=== PATIENT | female | born 1945 ===

== ENCOUNTER 2019-05-29 13:20 | Inpatient (IN) | payer MEDICARE, SELFPAY ==
[2019-05-29] VITALS (28 sets, daily range): BP systolic 80–187; BP diastolic 47–102; PULSE 58–106; RESP 16–41; TEMP 36.8–38.8; O2SAT 89–99; BMI 25.8
--- NOTE | 2019-05-29 13:28 | XR_ITS ---
WS: [id number] Portable AP upright chest, 05/29/2019 Clinical Data: fever cough Comparison: AP and lateral chest, 12/30/2018. Findings: No nodules, masses or effusions are seen. The heart is normal. The pulmonary vascularity is slightly increased. No pneumonia or pneumothorax is seen. The right diaphragm is elevated. The aorti c arch and descending aorta show tortuosity. Monitor leads on the chest wall. XR/XR chest 1V portable [id number] Impression: 1. Elevation of the right diaphragm unchanged. 2. Mild pulmonary vascular congestion. 3. Atherosclerosis.
--- NOTE | 2019-05-29 13:28 | CT_ITS ---
WS: [id number] CT scan of the head, 05/29/2019 Clinical Data: ams Comparison: CT head, 07/22/2015. DLP: 898.[address] scans at [facility] use at least one of these dose optimization techniques: automat ed exposure control; mA and/or kV adjustment per patient size (includes targeted exams where dose is matched to clinical indication); or iterative reconstruction. Findings: The ventricular system is moderately dilated without shift. No recent infarct or hemorrhage is seen. There are no abnormal intracerebral masses. The cerebellum and brainstem are not remarkable. Bony windows of the skull and skull base show no fractures or erosions. The mastoid air cells, logistics intern al auditory canals, sella turcica, intraorbital contents, and paranasal sinuses are unremarkable. CT/CT head wo con* [id number] Impression: Moderate cerebral atrophy.
--- NOTE | 2019-05-29 13:29 | ECG_ITS ---
Measurements Intervals [place] Rate: 106 P: 69 IL: 166 QRS: -14 QRSD: 80 T: 83 QT: 309 QTc: 411 SINUS TACHYCARDIA POSSIBLE LEFT ATRIAL ENLARGEMENT [-0.1mV P WAVE IN V1/V2] NONSPECIFIC T-WAVE ABNORMALITY ABNORMAL RHYTHM ECG INTERPRETATION BASED ON A DEFAULT AGE OF 40 YEARS Compared to ECG 02/27/2017 12:13:13 Sinus rhythm no longer present T-wave abnormality still present Electronically Signed On 05-30-2019 11:25:50 FACILITY MAINTENANCE SUPERVISOR by Jacob Mera M.D. [email or web address]
--- NOTE | 2019-05-29 13:30 | ED_ITS ---
HPI - Altered Mental Status General: Chief Complaint: Altered Mental Status Stated Complaint: ALTERED MENTAL STATUS Time Seen by Provider: 05/29/19 13:22 History of Present Illness: HPI narrative: patient is a 73 year old female history of COPD who presents with AMS and fever. Patient had gone to a gathering of some sort last week and had been reportedly exposed to influenza. Patient had been fine per spouse (reported to EMS) and today became less responsive and active. Patient initially hypoxic in the mid to upper 80's. She is currently alert and will answer questions but cannot tell us where she is other than the place . Patient has had albuterol, duo-neb and solu-medrol per EMS due to rhonchi and wheezing noted throughout lung jennings. No emesis reported although appears to be on clothing. No diarrhea, no rash, no edema. Neurologically in tact otherwise. Will obtain labs and evaluate for influenza, PNA or other causes of possible sepsis Accu-check pre-hospital 216 mg/dL MD complaint: altered mental status and confusion Onset (ago): unknown Timing confirmed by: spouse Severity: moderate Consistency of symptoms: Waxing and Waning Context: recent fever and COPD Associated symptoms: Reports no associated symptoms; Deny depression, homicidal ideation or suicidal ideation Treatments prior to arrival: IV fluid, oxygen and other (beta agonists, steroids) Review of Systems Const: Denies: change in appetite Eyes: Denies: change in vision, blurry vision, eye discharge or eye redness ENMT: Denies: throat pain, uvular edema, painful swallowing, mouth pain, de ntal pain, nasal congestion or facial/sinus pain Card: Denies: chest pain, irregular heart rhythm, swelling of feet/ankles, shortness of breath on exertion, shortness of breath when lying down or leg pain with exertion Resp: Denies: productive cough or coughing up blood GI: Denies: abdominal pain, nausea, vomiting, diarrhea, constipation or fecal incontinence : Denies: flank pain, difficulty urinating, painful urination, urinary frequency, urinary urgency or urinary hesitancy Musc: Denies: neck pain, back pain, extremity pain or extremity swelling Skin/Breast: Denies: rash, itching, redness, yellow skin or dry skin Neuro: Denies: headache, numbness in extremities or changes in sensation Psych: Denies: anxiety, depression, mood swings, panic attacks, sleeping less, suicidal ideation or homicidal ideation Endo: Denies: excessive urination, excessive thirst or tired all the time Saleem/Lymph: Denies: easy bruising, petechiae or enlarged lymph nodes All/Imm: Denies: hives, throat swelling, facial swelling, acute wheezing or seasonal allergies PFSH ED PFSH: Statuses (acute, chronic, etc) shown below reflect problem list status as previously entered and may not be historically accurate Social History Smoking and tobacco status: unknown if ever smoked Physical Exam Const: COMMON NORMALS: no limitations, alert and well nourished GENERAL APPEARANCE: cooperative, well developed, in distress, ill appearing and frail appearing ORIENTATION/CONSCIOUSNESS: Yes awake and Yes oriented to person HENMT: COMMON NORMALS: normocephalic, head/scalp atraumatic, hearing grossly normal bilaterally, external ears normal, EAC's normal, TM's normal bilaterally, external nose normal, nasal mucous membranes and turbinates normal, moist oral mucous membranes, oropharynx normal, dentition normal and gingiva normal HEAD & SCALP: normal to inspection, normocephalic and atraumatic FACE & SINUS: normal facial exam NOSE: external nose normal and nasal mucous membranes and turbinates normal EXTERNAL EAR: Yes external ears normal EXTERNAL AUDITORY CANAL: EAC's normal TYMPANIC MEMBRANE: TM's normal bilaterally MOUTH: oral and palatal mucosa normal, lip normal and tongue normal THROAT: no uvular edema Eye: COMMON NORMALS: PERRL, EOMs intact bilaterally, conjunctivae normal, no scleral icterus and normal visual jennings by confrontation GENERAL EYE: normal appearance of both eyes and normal light reflex VISUAL ACUITY: Yes acuity normal ALIGNMENT: Yes alignment normal PERIORBITAL: periorbital findings normal EYELID: eyelids normal CONJUNCTIVA: Yes conjunctivae normal SCLERA: sclerae normal PUPIL: Yes PERRL and Yes accommodation reflex normal DIRECT OPHTHALMOSCOPY: Yes normal light reflex Neck/C-Spine: COMMON NORMALS: full ROM, no lymphadenopathy, supple, no meningeal signs and no JVD GENERAL: Yes normal visual inspection CAROTIDS: Yes normal carotid upstroke CERVICAL SPINE: Yes cervical ROM normal Lymph: LYMPHATIC: no lymphadenopathy noted Chest: COMMONS NORMALS: inspection of chest normal CHEST: Yes symmetrical chest wall rise Resp: COMMON NORMALS: normal respiratory effort, no retractions and no use of accessory muscles EFFORT & INSPECTION: Yes symmetric chest movement and Yes audible wheezes AUSCULTATION: rhonchi left lower and wheezes expiratory wheezes and throughout Cardio: COMMON NORMALS: no JVD, regular rate, regular rhythm, S1 normal heart sound, S2 normal heart sound, no murmurs and peripheral pulses 2+ throughout RATE: regular rate RHYTHM: regular rhythm HEART SOUNDS: S1 normal and S2 normal PERIPHERAL PULSES: pulses 2+ throughout GI: COMMON NORMALS: normal to inspection, nondistended, normoactive bowel sounds and non-tender : COMMON NORMALS: Yes no CVA tenderness BLADDER/KIDNEY EXAM: Yes no CVA tenderness Back/Pelvis: COMMON NORMALS: no CVA tenderness, thoracic and lumbar spine normal to inspection, no thoracic nor lumbar tenderness and thoraco-lumbar ROM normal Extremity: COMMON NORMALS: normal to inspection, full ROM, normal capillary refill, no calf tenderness and no pedal edema Neuro: COMMON NORMALS: CN's II-XII intact bilaterally, moves all extremities, no focal motor deficits and no sensory deficits noted SENSORIUM/ORIENTATION: Yes alert and Yes oriented to person MENINGEAL SIGNS: Yes no meningeal signs SPEECH: speech normal GAIT: Yes unable to assess gait MOTOR EXAM: strength 5/5 throughout and no tremor noted Psych: COMMON NORMALS: mental status grossly normal, thought process normal, cooperative, affect normal, speech normal and activity/motor behavior normal SPEECH: Yes normal speech THOUGHT PROCESS: normal thought process THOUGHT CONTENT: Yes normal thought content INSIGHT: insight good Skin: COMMON NORMALS: no rashes or lesions noted, no wounds, skin turgor normal and no jaundice GENERAL SKIN EXAM: no rashes or lesions noted and turgor normal Course ED course: Patient sleeping, heart rate and blood pressure normalized, she is still requiring high flow O2 and is keeping sats in the mid 90s. Bumex and Haris ephin given. Will admit to ICU under presumed sepsis protocol. Vital Signs: Vital signs: Vital Signs Temperature 101.9 F H 05/29/19 13:29 Pulse Rate 106 H 05/29/19 13:29 Respiratory Rate 37 H 05/29/19 13:29 Blood Pressure 187/102 05/29/19 13:29 Pulse Oximetry 92 05/29/19 14:57 MDM - Altered Mental Status Lab Data: Attestation: I reviewed the patient's lab results. Labs: Lab Results 05/29/19 05/29/19 05/29/19 Range/Units 13:42 13:42 13:42 WBC 15.4 H (4.0-10.0) 10^3/ uL RBC 4.28 (4.1-5.3) 10^6/u L Hgb 12.2 (11.5-15.3) g/dL Hct 38.9 (37.0-47.0) % MCV 90.9 (81-99) fL MCH 28.5 (28.0-34.0) pg MCHC 31.4 (30.0-36.0) g/dL RDW 15.9 H (12.1-15.1) % Plt Count 216 (130-400) 10^3/c mm MPV 9.8 (7.4-10.4) fL Neut % (Auto) 81.9 % Lymph % (Auto) 7.7 % [place] % (Auto) 9.6 % Eos % (Auto) 0.0 % Baso % (Auto) 0.1 % Neut # (Auto) 12.6 H (1.8-7.7) 10^3/u L Lymph # (Auto) 1.2 (0.8-4.8) 10^3/u L [place] # (Auto) 1.5 H (0.2-0.9) 10^3/u L Eos # (Auto) 0.0 (0.0-0.8) 10^3/u L Baso # (Auto) 0.0 (0.0-0.1) 10^3/u L Nucleated RBC % (a uto) 0 % Nucleated RBCs # 0.0 /100WBC ESR 96 H (0-15) mm/hr PT 15.90 H (10.5-13.3) SECO NDS INR 1.23 H (0.8-1.2) APTT 27.4 (23.9-36.7) SECO NDS Specimen Type Sample Site ABG pH (7.35-7.45) ABG pCO2 (35-45) mmHg ABG pO2 (80.0-100.0) mmH g ABG HCO3 (22-26) mmol/L ABG Base Excess (-2.0-2.0) mmol/ L Shiv Test Hematocrit (37-47) % O2 Delivery Device O2 Liters/Min % Clinical Trial Data Manager ID Sodium (136-145) mmol/L Potassium (3.5-5.1) mmol/L Chloride (98-107) mmol/L Carbon Dioxide (22-29) mmol/L Anion Gap (5-19) BUN (8-23) mg/dL Creatinine (0.5-0.9) mg/dL Glucose (74-106) mg/dL Lactate (0.5-2.2) mmol/L Calcium (8.8-10.2) mg/Dl Magnesium (1.7-2.3) mg/dL Total Bilirubin (0.15-1.2) mg/dL AST (0-32) U/L ALT (0-33) U/L Alkaline Phosphata se (35-105) IU/L NT-Pro-B Natriuret Pep (0-125) pg/mL Total Protein (6.6-8.7) g/dL Albumin (3.5-5.2) g/dL Globulin (1.3-4.6) g/dL Urine Color (Yellow) Urine Appearance (CLEAR) Urine pH (5-7) Ur Specific Gravit y (1.005-1.030) Urine Protein (Negative) Urine Glucose (UA) (Normal) Urine Ketones (Negative) Urine Occult Blood (Negative) Urine Nitrate (Negative) Urine Bilirubin (NEGATIVE) Urine Urobilinogen (Negative) mg/dL Ur Leukocyte Tammy ase (Negative) Urine RBC (0-2) /hpf Urine WBC (0-5) /hpf Ur Squamous Epith Cells (0-5) Ur Transition Epit h Cell /hpf Urine Bacteria (NONE) Hyaline Casts Urine Mucus Urine Opiates Scre en (Negative) ng/mL Ur Barbiturates Sc reen (Negative) ng/mL Ur Phencyclidine S crn (Negative) ng/mL Ur Amphetamines Sc reen (Negative) ng/mL U Benzodiazepines Scrn (Negative) ng/mL Urine Cocaine Scre en (Negative) ng/mL U Marijuana (THC) Screen (Negative) ng/mL Serum Ketones (Negative) Influenza Type A A g (Negative) POC Influenza B Ag (Negative) 05/29/19 05/29/19 05/29/19 Range/Units 13:42 13:42 13:46 WBC (4.0-10.0) 10^3/ uL RBC (4.1-5.3) 10^6/u L Hgb (11.5-15.3) g/dL Hct (37.0-47.0) % MCV (81-99) fL MCH (28.0-34.0) pg MCHC (30.0-36.0) g/dL RDW (12.1-15.1) % Plt Count (130-400) 10^3/c mm MPV (7.4-10.4) fL Neut % (Auto) % Lymph % (Auto) % [place] % (Auto) % Eos % (Auto) % Baso % (Auto) % Neut # (Auto) (1.8-7.7) 10^3/u L Lymph # (Auto) (0.8-4.8) 10^3/u L [place] # (Auto) (0.2-0.9) 10^3/u L Eos # (Auto) (0.0-0.8) 10^3/u L Baso # (Auto) (0.0-0.1) 10^3/u L Nucleated RBC % (a uto) % Nucleated RBCs # /100WBC ESR (0-15) mm/hr PT (10.5-13.3) SECO NDS INR (0.8-1.2) APTT (23.9-36.7) SECO NDS Specimen Type Sample Site ABG pH (7.35-7.45) ABG pCO2 (35-45) mmHg ABG pO2 (80.0-100.0) mmH g ABG HCO3 (22-26) mmol/L ABG Base Excess (-2.0-2.0) mmol/ L Shiv Test Hematocrit (37-47) % O2 Delivery Device O2 Liters/Min % Clinical Trial Data Manager ID Sodium 132 L (136-145) mmol/L Potassium 4.5 (3.5-5.1) mmol/L Chloride 93 L (98-107) mmol/L Carbon Dioxide 25 (22-29) mmol/L Anion Gap 18.5 (5-19) BUN 45 H (8-23) mg/dL Creatinine 1.7 H (0.5-0.9) mg/dL Glucose 210 H (74-106) mg/dL Lactate 1.8 (0.5-2.2) mmol/L Calcium 9.6 (8.8-10.2) mg/Dl Magnesium 2.3 (1.7-2.3) mg/dL Total Bilirubin 0.4 (0.15-1.2) mg/dL AST 52 H (0-32) U/L ALT 17 (0-33) U/L Alkaline Phosphata se 92 (35-105) IU/L NT-Pro-B Natriuret Pep 1355 H (0-125) pg/mL Total Protein 7.9 (6.6-8.7) g/dL Albumin 3.4 L (3.5-5.2) g/dL Globulin 4.5 (1.3-4.6) g/dL Urine Color (Yellow) Urine Appearance (CLEAR) Urine pH (5-7) Ur Specific Gravit y (1.005-1.030) Urine Protein (Negative) Urine Glucose (UA) (Normal) Urine Ketones (Negative) Urine Occult Blood (Negative) Urine Nitrate (Negative) Urine Bilirubin (NEGATIVE) Urine Urobilinogen (Negative) mg/dL Ur Leukocyte Tammy ase (Negative) Urine RBC (0-2) /hpf Urine WBC (0-5) /hpf Ur Squamous Epith Cells (0-5) Ur Transition Epit h Cell /hpf Urine Bacteria (NONE) Hyaline Casts Urine Mucus Urine Opiates Scre en (Negative) ng/mL Ur Barbiturates Sc reen (Negative) ng/mL Ur Phencyclidine S crn (Negative) ng/mL Ur Amphetamines Sc reen (Negative) ng/mL U Benzodiazepines Scrn (Negative) ng/mL Urine Cocaine Scre en (Negative) ng/mL U Marijuana (THC) Screen (Negative) ng/mL Serum Ketones Negative (Negative) Influenza Type A A g (Negative) POC Influenza B Ag (Negative) 05/29/19 05/29/19 05/29/19 Range/Units 13:54 14:00 14:00 WBC (4.0-10.0) 10^3/ uL RBC (4.1-5.3) 10^6/u L Hgb (11.5-15.3) g/dL Hct (37.0-47.0) % MCV (81-99) fL MCH (28.0-34.0) pg MCHC (30.0-36.0) g/dL RDW (12.1-15.1) % Plt Count (130-400) 10^3/c mm MPV (7.4-10.4) fL Neut % (Auto) % Lymph % (Auto) % [place] % (Auto) % Eos % (Auto) % Baso % (Auto) % Neut # (Auto) (1.8-7.7) 10^3/u L Lymph # (Auto) (0.8-4.8) 10^3/u L [place] # (Auto) (0.2-0.9) 10^3/u L Eos # (Auto) (0.0-0.8) 10^3/u L Baso # (Auto) (0.0-0.1) 10^3/u L Nucleated RBC % (a uto) % Nucleated RBCs # /100WBC ESR (0-15) mm/hr PT (10.5-13.3) SECO NDS INR (0.8-1.2) APTT (23.9-36.7) SECO NDS Specimen Type Arterial Sample Site Radial, right ABG pH 7.43 (7.35-7.45) ABG pCO2 41.9 (35-45) mmHg ABG pO2 78.2 L (80.0-100.0) mmH g ABG HCO3 27.5 H (22-26) mmol/L ABG Base Excess 2.8 H (-2.0-2.0) mmol/ L Shiv Test Pos Hematocrit 39.6 (37-47) % O2 Delivery Device Simple mask O2 Liters/Min 7.0 % Clinical Trial Data Manager ID [id number] Sodium (136-145) mmol/L Potassium (3.5-5.1) mmol/L Chloride (98-107) mmol/L Carbon Dioxide (22-29) mmol/L Anion Gap (5-19) BUN (8-23) mg/dL Creatinine (0.5-0.9) mg/dL Glucose (74-106) mg/dL Lactate (0.5-2.2) mmol/L Calcium (8.8-10.2) mg/Dl Magnesium (1.7-2.3) mg/dL Total Bilirubin (0.15-1.2) mg/dL AST (0-32) U/L ALT (0-33) U/L Alkaline Phosphata se (35-105) IU/L NT-Pro-B Natriuret Pep (0-125) pg/mL Total Protein (6.6-8.7) g/dL Albumin (3.5-5.2) g/dL Globulin (1.3-4.6) g/dL Urine Color Yellow (Yellow) Urine Appearance Hazy A (CLEAR) Urine pH 5 (5-7) Ur Specific Gravit y 1.020 (1.005-1.030) Urine Protein 3+ H (Negative) Urine Glucose (UA) Norm (Normal) Urine Ketones 1+ H (Negative) Urine Occult Blood 3+ H (Negative) Urine Nitrate Negative (Negative) Urine Bilirubin 1+ H (NEGATIVE) Urine Urobilinogen 4 H (Negative) mg/dL Ur Leukocyte Tammy ase 2+ H (Negative) Urine RBC 25-40 H (0-2) /hpf Urine WBC 80-100 H (0-5) /hpf Ur Squamous Epith Cells 5-10 H (0-5) Ur Transition Epit h Cell 0-4 /hpf Urine Bacteria 1+ H (NONE) Hyaline Casts Rare Urine Mucus Trace Urine Opiates Scre en Negative (Negative) ng/mL Ur Barbiturates Sc reen Negative (Negative) ng/mL Ur Phencyclidine S crn Negative (Negative) ng/mL Ur Amphetamines Sc reen Negative (Negative) ng/mL U Benzodiazepines Scrn Negative (Negative) ng/mL Urine Cocaine Scre en Negative (Negative) ng/mL U Marijuana (THC) Screen Negative (Negative) ng/mL Serum Ketones (Negative) Influenza Type A A g (Negative) POC Influenza B Ag (Negative) 05/29/19 Range/Units 14:41 WBC (4.0-10.0) 10^3/ uL RBC (4.1-5.3) 10^6/u L Hgb (11.5-15.3) g/dL Hct (37.0-47.0) % MCV (81-99) fL MCH (28.0-34.0) pg MCHC (30.0-36.0) g/dL RDW (12.1-15.1) % Plt Count (130-400) 10^3/c mm MPV (7.4-10.4) fL Neut % (Auto) % Lymph % (Auto) % [place] % (Auto) % Eos % (Auto) % Baso % (Auto) % Neut # (Auto) (1.8-7.7) 10^3/u L Lymph # (Auto) (0.8-4.8) 10^3/u L [place] # (Auto) (0.2-0.9) 10^3/u L Eos # (Auto) (0.0-0.8) 10^3/u L Baso # (Auto) (0.0-0.1) 10^3/u L Nucleated RBC % (a uto) % Nucleated RBCs # /100WBC ESR (0-15) mm/hr PT (10.5-13.3) SECO NDS INR (0.8-1.2) APTT (23.9-36.7) SECO NDS Specimen Type Sample Site ABG pH (7.35-7.45) ABG pCO2 (35-45) mmHg ABG pO2 (80.0-100.0) mmH g ABG HCO3 (22-26) mmol/L ABG Base Excess (-2.0-2.0) mmol/ L Shiv Test Hematocrit (37-47) % O2 Delivery Device O2 Liters/Min % Clinical Trial Data Manager ID Sodium (136-145) mmol/L Potassium (3.5-5.1) mmol/L Chloride (98-107) mmol/L Carbon Dioxide (22-29) mmol/L Anion Gap (5-19) BUN (8-23) mg/dL Creatinine (0.5-0.9) mg/dL Glucose (74-106) mg/dL Lactate (0.5-2.2) mmol/L Calcium (8.8-10.2) mg/Dl Magnesium (1.7-2.3) mg/dL Total Bilirubin (0.15-1.2) mg/dL AST (0-32) U/L ALT (0-33) U/L Alkaline Phosphata se (35-105) IU/L NT-Pro-B Natriuret Pep (0-125) pg/mL Total Protein (6.6-8.7) g/dL Albumin (3.5-5.2) g/dL Globulin (1.3-4.6) g/dL Urine Color (Yellow) Urine Appearance (CLEAR) Urine pH (5-7) Ur Specific Gravit y (1.005-1.030) Urine Protein (Negative) Urine Glucose (UA) (Normal) Urine Ketones (Negative) Urine Occult Blood (Negative) Urine Nitrate (Negative) Urine Bilirubin (NEGATIVE) Urine Urobilinogen (Negative) mg/dL Ur Leukocyte Tammy ase (Negative) Urine RBC (0-2) /hpf Urine WBC (0-5) /hpf Ur Squamous Epith Cells (0-5) Ur Transition Epit h Cell /hpf Urine Bacteria (NONE) Hyaline Casts Urine Mucus Urine Opiates Scre en (Negative) ng/mL Ur Barbiturates Sc reen (Negative) ng/mL Ur Phencyclidine S crn (Negative) ng/mL Ur Amphetamines Sc reen (Negative) ng/mL U Benzodiazepines Scrn (Negative) ng/mL Urine Cocaine Scre en (Negative) ng/mL U Marijuana (THC) Screen (Negative) ng/mL Serum Ketones (Negative) Influenza Type A A g Negative (Negative) POC Influenza B Ag Negative (Negative) Discharge Plan Discharge Patient Disposition: Admitted As Inpatient Clinical Impression: Acute UTI Altered mental status Qualifiers: Altered mental status type: disorientation Qualified Code(s): R41.0 - Disorientation, unspecified Sepsis Qualifiers: Sepsis type: sepsis due to unspecified organism Sepsis acute organ dysfunction status: unspecified Qualified Code(s): A41.9 - Sepsis, unspecified organism CHF (congestive heart failure) Qualifiers: Heart failure type: unspecified Heart failure chronicity: acute Qualified Code(s): I50.9 - Heart failure, unspecified Condition: Stable Referrals: Ash Arevalo MD [Family Provider] - Coding Level of Care Code ED Director Operating [facility] Fwd Exam Problem Focused
[2019-05-29] MEDS: cefTRIAXone 1,000 MG in sodium chloride 0.9% (plus) 50 ML 100 MG IV (13:44)
[2019-05-29] MEDS: acetaminophen 650 mg Supp PR (13:45)
[2019-05-29] MEDS: sodium chloride 0.9% 1,000 ML 999 ML IV (13:45)
[2019-05-29 13:54] LABS: Basophils % 0.1 %; Hematocrit 38.9 % (37.0-47.0); Hemoglobin 12.2 g/dL (11.5-15.3); Lymphocytes # 1.2 10^3/uL (0.8-4.8); Lymphocytes % 7.7 %; Mean Corpuscular HGB Conc 31.4 g/dL (30.0-36.0); Mean Corpuscular Hemoglobin 28.5 pg (28.0-34.0); Mean Corpuscular Volume 90.9 fL (81-99); Mean Platelet Volume 9.8 fL (7.4-10.4); Monocytes # 1.5 10^3/uL (0.2-0.9); Monocytes % 9.6 %; Neutrophils # 12.6 10^3/uL (1.8-7.7); Neutrophils % 81.9 %; Nucleated Red Blood Cells % 0 %; Platelet Count 216 10^3/cmm (130-400); Red Blood Count 4.28 10^6/uL (4.1-5.3); Red Cell Distribution Width 15.9 % (12.1-15.1); White Blood Count 15.4 10^3/uL (4.0-10.0)
[2019-05-29 14:04] LABS: INR 1.23 (0.8-1.2); Partial Thromboplastin Time 27.4 SECONDS (23.9-36.7)
[2019-05-29 14:06] LABS: Ketone (Acetest) Serum Negative (Negative)
[2019-05-29 14:07] LABS: ABG PCO2 41.9 mmHg (35-45); ABG PH Result 7.43 (7.35-7.45); Arterial Blood Gas Hematocrit 39.6 % (37-47); Base Excess ABG 2.8 mmol/L (-2.0-2.0); Blood Gas Allen Test Pos; Blood Gas Sample Site Radial, right; Blood Gas Sample Type Arterial; HCO3 ABG 27.5 mmol/L (22-26); Oxygen Device SIMPLE MASK; PO2 ABG 78.2 mmHg (80.0-100.0)
[2019-05-29 14:08] LABS: Lactate (Lactic Acid level) 1.8 mmol/L (0.5-2.2)
[2019-05-29 14:20] LABS: Alanine Aminotransferase 17 U/L (0-33); Albumin Level 3.4 g/dL (3.5-5.2); Alkaline Phosphatase 92 IU/L (35-105); Anion Gap 18.5 (5-19); Aspartate Amino Transferase 52 U/L (0-32); Blood Urea Nitrogen 45 mg/dL (8-23); Calcium 9.6 mg/Dl (8.8-10.2); Carbon Dioxide 25 mmol/L (22-29); Chloride 93 mmol/L (98-107); Globulin 4.5 g/dL (1.3-4.6); Glucose 210 mg/dL (74-106); Magnesium 2.3 mg/dL (1.7-2.3); NT Pro B Type Natriuretic Pept 1355 pg/mL (0-125); Potassium 4.5 mmol/L (3.5-5.1); Sodium 132 mmol/L (136-145); Total Bilirubin 0.4 mg/dL (0.15-1.2); Total Protein 7.9 g/dL (6.6-8.7)
[2019-05-29 14:34] LABS: Erythrocyte Sedimentation Rate 96 mm/hr (0-15)
[2019-05-29] MEDS: bumetanide 0.25 mg/mL SDV 10 mL 2 MG IV (14:53)
[2019-05-29 15:22] LABS: Influenza A by IFA Negative (Negative); Influenza B by IFA Negative (Negative)
[2019-05-29 15:28] LABS: Bilirubin Urine 1+ (NEGATIVE); Blood Urine 3+ (Negative); Glucose Urine UA Norm (Normal); Ketones Urine 1+ (Negative); Nitrate Urine Negative (Negative); Protein Urine 3+ (Negative); Urine Appearance Hazy (CLEAR); Urine Color Yellow (Yellow); pH Urine 5 (5-7)
[2019-05-29 15:29] LABS: Add Urine Microscopic? YES; Leukocyte Esterase Urine 2+ (Negative); Urobilinogen Urine 4 mg/dL (Negative)
[2019-05-29 15:35] LABS: Hyaline Casts Urine RARE; Mucus Urine TRACE
[2019-05-29 15:37] LABS: Bacteria Urine 1+; RBC Urine 25-40 /hpf (0-2); Transitional Epi Cells Urine 0-4 /hpf; WBC Urine 80-100 /hpf (0-5)
[2019-05-29 15:38] LABS: Add Urine Culture? Yes
[2019-05-29 15:40] LABS: Amphetamines Screen Urine Negative (Negative); Barbiturates Screen Urine Negative (Negative); Benzodiazepines Screen Urine Negative (Negative); Cocaine Screen Urine Negative (Negative); Opiate Screen Urine Negative (Negative); PCP Screen Urine Negative (Negative); THC Screen Urine Negative (Negative)
--- NOTE | 2019-05-29 17:31 | P.HP_ITS ---
Providers/Chief Complaint Admitting Physician: Sushila Primary Care Provider: Irina Chief Complaint: ALTERED MENTAL STATUS History of Present Illness Leslie Urena is a 73 year old female with history of COPD, HTN, hypothyroidism, depression, schizophrenia, hyperammonemia was brought to the emergency department evaluation by her family due to generalized weakness, altered mental status and fever. She reportedly attended a gathering of some sort last week and was exposed to influenza. Family were concerned perhaps this was the cause of her illness currently. Unfortunately during the time of my visit family is gone. She appears to have improved, and he is generally weak, with sluggish responses, but is oriented x3, with currently good insight into her condition. She acknowledges her overall weakness. Does report having burning with urination, although cannot say the duration. Per discussion with ER physician here she was noted to be hypoxic in mid to upper 80s. Was started on oxygen mask at 8 L with improvement in saturation, jerrod is not thought to normally be on oxygen at home. Chest x-ray was assessed with finding of pulmonary congestion due to which received [address] of the head was unremarkable. She is noted to have leukocytosis of 15, sinus tachycardia of 106 with suspected sepsis, with urinalysis suggestive of urinary tract infection. Due to this she received a dose of Rocephin, with send out of cultures. Lactic acid is 1.8, however, she does have acute kidney injury with creatinine of 1.7 with normal level at baseline. Review of Systems Const: Reports: fever and malaise; Denies: chills or body aches Eyes: Denies: change in vision or eye redness ENMT: Denies: throat pain, oral sores/lesions or ear pain Card: Denies: chest pain, edema, pre-syncope or shortness of breath on exertion Resp: Denies: shortness of breath, productive cough, change in phlegm color or coughing up blood GI: Denies: abdominal pain, nausea, vomiting, diarrhea, constipation, blood in stool or black tarry stool : Reports: other (Burning with urination); Denies: flank pain, urinary frequency or blood in urine Musc: Denies: back pain, joint swelling or redness Skin/Breast: Denies: rash, sores or new lesion Neuro: Reports: confusion; Denies: headache, numbness in extremities, weakness in extremities, dizziness or seizure-like activity Endo: Denies: excessive urination or excessive thirst Saleem/Lymph: Denies: easy bleeding or purpura All/Imm: Denies: hives, throat swelling or tongue swelling Medications/Allergies Home Medications Medication Instructions Recorded Confirmed Last Taken Type albuterol sulfate [ProAir HFA] INHALATION 05/29/19 Unknown History atenolol 25 mg PO DAILY 05/29/19 05/29/19 Unknown History divalproex 1,000 mg PO BID 05/29/19 05/29/19 Unknown History fluticasone propion-salmeterol INHALATION 05/29/19 Unknown History [Advair Diskus] levothyroxine 125 mcg PO DAILY 05/29/19 05/29/19 Unknown History olanzapine 5 mg PO DAILY 05/29/19 05/29/19 Unknown History paroxetine HCl 20 mg PO DAILY 05/29/19 05/29/19 Unknown History Allergies Allergy/AdvReac Type Severity Reaction Status Date / Time No Known Allergies Allergy Verified 05/29/19 13:31 PFSH Acute PFSH: Statuses (acute, chronic, etc) shown below reflect problem list status as previously entered and may not be historically accurate Medical History COPD (chronic obstructive pulmonary disease) (Acute) Depression (Acute) HTN (hypertension) (Acute) Hyperammonemia (Acute) Hypothyroidism (Acute) Schizophrenia (Acute) Social History Smoking and tobacco status: current every day smoker cigarettes Packs smoked per day: 1 Alcohol intake: current Alcohol intake frequency: holidays/special occasions only Substance/Drug Use: never Household members: spouse Marital status: Vitals/I&O/Wt Last Vital Signs Temp 101.9 F H 05/29/19 13:29 Pulse 106 H 05/29/19 13:29 Resp 37 H 05/29/19 13:29 BP 187/102 05/29/19 13:29 Pulse Ox 92 05/29/19 14:57 Weight last 48 hrs Weight 72.575 kg Physical Exam Const: COMMON NORMALS: no apparent distress and oriented x3 GENERAL APPEARANCE: cooperative, limp and diaphoretic OTHER: Generally weak HENMT: COMMON NORMALS: oropharynx normal MOUTH: moist mucous membranes ab normal (Cracked/cornified mucous membranes suggesting they were dry for a while, currently appearing more moist) Eye: VISUAL TUCKER: Yes other (Intact) Neck/C-Spine: COMMON NORMALS: no JVD Resp: COMMON NORMALS: normal respiratory effort AUSCULTATION: wheezes Cardio: COMMON NORMALS: regular rhythm, S1 normal heart sound, S2 normal heart sound and no murmurs; negative for no JVD RHYTHM: regular rhythm HEART SOUNDS: S1 normal and S2 normal GI: COMMON NORMALS: normal to inspection, nondistended, normoactive bowel sounds, soft to palpation and non-tender PALPATION: Yes soft Extremity: COMMON NORMALS: no joint enlargement and no pedal edema Neuro: COMMON NORMALS: oriented x3, CN's II-XII intact bilaterally and moves all extremities SENSORIUM/ORIENTATION: Yes alert, Yes oriented to person, Yes oriented to place and Yes oriented to time SPEECH: speech normal SENSORY EXAM: Yes other (Symmetrical) MOTOR EXAM: No tremor and other (Weak, but symmetrical) PUPIL EXAM: Normal pupillary reactivity/response: bilateral Skin: COMMON NORMALS: no rashes or lesions noted GENERAL SKIN EXAM: no rashes or lesions noted Sepsis: Is patient septic: Yes Focused sepsis exam performed: Yes Data : 05/29/19 13:42 05/29/19 13:42 Micro: Microbiology 05/29/19 13:42 Blood Culture - Preliminary Blood SPECIMEN COLLECTED 05/29/19 13:46 Blood Culture - Preliminary Blood SPECIMEN COLLECTED A&P Assessment and plan (1) Sepsis: Severe sepsis with WBC of 15.4, sinus tachycardia of 106, fever 101.9. Due to urinary source, with urinary tract infection. Cannot exclude viral illness as well, although influenza rapid screen is negative. Follow urine and blood cultures. The Rocephin. Received 1 L of IV fluid but this in ER. For now avoid if need further fluid due to CHF exacerbation. Monitor blood pressures. Lactic acid is only 1.8, however, does have acute kidney injury as well with creatinine 1.7, with normal baseline. Due to this classifies as severe sepsis, and will admit to intensive care unit. Status: Acute Qualifiers: Sepsis acute organ dysfunction status: unspecified Sepsis type: sepsis due to unspecified organism Qualified Code(s): A41.9 - Sepsis, unspecified organism Code(s): A41.9 - Sepsis, unspecified organism (2) Acute kidney injury: Creatinine 1.7. Normal baseline. She denies NSAID use at home. We will check kidney ultrasound, urine studies. Status: Acute Code(s): N17.9 - Acute kidney failure, unspecified (3) Acute UTI: 80-100 WBC in urine. Reports dysuria, although is not sure of duration. On review of prior urine cultures several years ago had Klebsiella resistant to ampicillin, prior to that E. coli resistant to gentamicin. Continue Rocephin at this time. Follow urine culture. Status: Acute Code(s): N39.0 - Urinary tract infection, site not specified (4) Altered mental status: Acute encephalopathy secondary to sepsis, urinary tract infection. For now we will reduce dose of olanzapine, reduced dose of paroxetine. For now sips and chips and medications only due to generalized weakness. Status: Acute Qualifiers: Altered mental status type: disorientation Qualified Code(s): R41.0 - Disorientation, unspecified Code(s): R41.82 - Altered mental status, unspecified (5) CHF (congestive heart failure): Continue diuresis. Monitor blood pressures, volume status. Suspected diastolic congestive heart failure. Echocardiogram from 2017 with hyperdynamic circulation, EF 75%, grade 1 diastolic dysfunction. Trace TR. Henry l reassess echo. Check EKG and troponin series. Status: Acute Qualifiers: Heart failure chronicity: acute Heart failure type: unspecified Qualified Code(s): I50.9 - Heart failure, unspecified Code(s): I50.9 - Heart failure, unspecified (6) COPD (chronic obstructive pulmonary disease): Currently appears in COPD exacerbation, with wheezing on exam, does have hypoxia. I am told at baseline does not use oxygen. Currently on 8 L. We will add breathing treatments. Continue oxygen support. Budesonide. Rocephin. Status: Chronic Code(s): J44.9 - Chronic obstructive pulmonary disease, unspecified (7) HTN (hypertension): Status: Chronic Code(s): I10 - Essential (primary) hypertension (8) Hypothyroidism: Status: Chronic Code(s): E03.9 - Hypothyroidism, unspecified (9) Depression: Status: Chronic Code(s): F32.9 - Major depressive disorder, single episode, unspecified (10) Schizophrenia: Status: Chronic Code(s): F20.9 - Schizophrenia, unspecified (11) Hyperammonemia: Status: Chronic Code(s): E72.20 - Disorder of urea cycle metabolism, unspecified Attestations Medical Necessity Statement*: Admission of over 2 midnights is going to be needed for assessment of management of severe sepsis, acute CHF, acute kidney. Coding Level of Care Code Acute Instructional Technology Instructor for [facility] Fwd Diagnoses Sepsis A41.9 Sepsis acute organ dysfunction status: unspecified Sepsis type: sepsis due to unspecified organism Acute kidney injury N17.9 Acute UTI N39.0 Altered mental status R41.0 Altered mental status type: disorientation CHF (congestive heart failure) I50.9 Heart failure chronicity: acute Heart failure type: unspecified COPD (chronic obstructive pulmonary disease) J44.9 HTN (hypertension) I10 Hypothyroidism E03.9 Depression F32.9 Schizophrenia F20.9 Hyperammonemia E72.20 Sepsis Event Note Evaluation Current stage of sepsis: severe sepsis Focused Exam Vital Signs Temp Pulse Pulse Resp BP BP Pulse Ox 05/29/19 17:49 78 20 H 130/76 93 05/29/19 14:57 92 05/29/19 13:29 101.9 F H 106 H 37 H 187/102 93 05/29/19 13:22 101.9 F H 103 H 37 H 187/102 93 Respiratory exam: Present wheezes; Absent accessory muscle use Cardiovascular exam: Present tachycardia Capillary refill: < 3 Seconds Peripheral pulse location: Radial Skin exam: flushed Date exam was performed: 05/29/19 Time exam was performed: 18:14 Problem List (1) Acute kidney injury: Current Visit: Yes Status: Acute
[2019-05-29 19:20] LABS: Troponin(5th) Baseline 26 ng/mL (0-10)
[2019-05-29] MEDS: nicotine 21 mg Patch 1 PATCH TRANSDERMA (19:23)
[2019-05-29] MEDS: divalproex ER 500 mg Tablet (24H) 1000 MG PO (19:24)
[2019-05-29] MEDS: heparin 5,000 unit/mL INJ 1 mL 5000 UNIT SUBCUT (19:24)
--- NOTE | 2019-05-29 20:07 | ECG_ITS ---
Measurements Intervals [place] Rate: 70 P: 65 MO: 164 QRS: -10 QRSD: 94 T: 75 QT: 415 QTc: 448 SINUS RHYTHM Compared to ECG 02/27/2017 12:13:13 T-wave abnormality no longer present Electronically Signed On 05-30-2019 11:31:44 MASK DESIGNER by Jacob Mera M.D. [email or web address]
[2019-05-29] MEDS: budesonide 0.5 mg/2 mL Neb 0.25 MG INHALATION (21:05)
[2019-05-29] MEDS: ipratropium-albuterol 3 mL Neb INHALATION (21:06)
[2019-05-29 21:34] LABS: ABG PCO2 54.4 mmHg (35-45); ABG PH Result 7.38 (7.35-7.45); Alveolar-Arterial Oxygen Gradi 9.4 mmHg (5-10); Arterial Blood Gas Hematocrit 38.4 % (37-47); Base Excess ABG 5.3 mmol/L (-2.0-2.0); Blood Gas Allen Test Pos; Blood Gas Sample Site Radial, right; Blood Gas Sample Type Arterial; Carboxyhemoglobin 0.9 %THgb (0.4-20.1); HCO3 ABG 31.8 mmol/L (22-26); Ionized Calcium Level - ABG 1.2 mmol/L (1.1-1.4); Methemoglobin 0.8 % (0.4-1.5); Oxygen Device OXY MASK; Oxygen Saturation ABG 93.6; Potassium Level - ABG 4.4 mmol/L (3.5-5.0); Total Hemoglobin 12.5 g/dL (12-16)
[2019-05-29 21:54] LABS: Troponin 5 2HR 24.69 ng/mL (0-10)
[2019-05-29 21:57] LABS: Troponin 5 2HR Delta -1.31 ABS# (0-10)
--- NOTE | 2019-05-29 21:57 | PC.NURSE ---
pt tp room 2 from er cleaned weighed and hooked to monitors. vs stable at this time patient is answering questions appropriately. at 0 patient started to have fgrunting resp as well as some confusion and slowing of answers to question. abg ordered and Dr Ulrich called to bedside. patient is also favoring right side with some drooling . Dr. Ulrich examined patient ordered some labs . will await new orders and moitor patient..
--- NOTE | 2019-05-29 22:10 | PC.NURSE ---
Patient alert and oriented X 3; when asked if the patient wanted any kind of life saving measures, intubation, medication, or compressions she stated that she did not. This was witness by Geneva Garcia RN. Dr Narvaez notified.
[2019-05-29 22:30] LABS: Ammonia 65 umol/L (11-51)
[2019-05-29 23:37] LABS: Urine Creatinine 295 mg/dL (28-217); Urine Random Sodium 29 mmol/L
[2019-05-29 23:57] LABS: Glucose Point of Care 181 mg/dL (70-110)
[2019-05-30] VITALS (34 sets, daily range): BP systolic 94–152; BP diastolic 57–86; PULSE 51–102; RESP 14–29; TEMP 36.4–36.9; O2SAT 85–99
--- NOTE | 2019-05-30 00:07 | ECG_ITS ---
Measurements Intervals [place] Rate: 55 P: 64 OR: 157 QRS: 3 QRSD: 93 T: 76 QT: 482 QTc: 464 SINUS BRADYCARDIA PROLONGED QT INTERVAL Compared to ECG 02/27/2017 12:13:13 Prolonged QT interval now present Sinus rhythm no longer present T-wave abnormality no longer present Electronically Signed On 05-30-2019 11:33:16 COMMIS CHEF by Jacob Mrea M.D. [email or web address]
[2019-05-30 01:16] LABS: Troponin 5 6HR 20.68 ng/L (0-10)
[2019-05-30 01:19] LABS: Troponin 5 6HR Delta -5.32 ng/L (0-12)
[2019-05-30] MEDS: cefTRIAXone 1,000 MG in sodium chloride 0.9% (plus) 50 ML 100 MG IV (02:22)
[2019-05-30 05:17] LABS: Basophils % 0.1 %; Hematocrit 45.1 % (37.0-47.0); Hemoglobin 13.6 g/dL (11.5-15.3); Lymphocytes # 1.3 10^3/uL (0.8-4.8); Lymphocytes % 10.4 %; Mean Corpuscular HGB Conc 30.2 g/dL (30.0-36.0); Mean Corpuscular Hemoglobin 29.3 pg (28.0-34.0); Mean Corpuscular Volume 97.2 fL (81-99); Mean Platelet Volume 9.9 fL (7.4-10.4); Monocytes # 0.5 10^3/uL (0.2-0.9); Neutrophils # 10.7 10^3/uL (1.8-7.7); Nucleated Red Blood Cells % 0 %; Platelet Count 172 10^3/cmm (130-400); Red Blood Count 4.64 10^6/uL (4.1-5.3); Red Cell Distribution Width 15.9 % (12.1-15.1); White Blood Count 12.5 10^3/uL (4.0-10.0)
[2019-05-30 05:34] LABS: Alanine Aminotransferase 18 U/L (0-33); Albumin Level 2.7 g/dL (3.5-5.2); Alkaline Phosphatase 83 IU/L (35-105); Anion Gap 17.5 (5-19); Aspartate Amino Transferase 39 U/L (0-32); Blood Urea Nitrogen 50 mg/dL (8-23); Calcium 9.3 mg/Dl (8.8-10.2); Carbon Dioxide 27 mmol/L (22-29); Chloride 96 mmol/L (98-107); Glucose 144 mg/dL (74-106); Potassium 4.5 mmol/L (3.5-5.1); Sodium 136 mmol/L (136-145); Total Bilirubin 0.2 mg/dL (0.15-1.2); Total Protein 7.7 g/dL (6.6-8.7)
[2019-05-30] MEDS: bumetanide 0.25 mg/mL SDV 10 mL 1 MG IV ×2 (05:43→17:38)
[2019-05-30] MEDS: heparin 5,000 unit/mL INJ 1 mL 5000 UNIT SUBCUT ×2 (06:21→17:38)
[2019-05-30] MEDS: budesonide 0.5 mg/2 mL Neb 0.25 MG INHALATION ×2 (08:37→19:30)
[2019-05-30] MEDS: ipratropium-albuterol 3 mL Neb INHALATION ×3 (08:37→20:08)
[2019-05-30] MEDS: PARoxetine 20 mg Tablet 10 MG PO (10:29)
[2019-05-30] MEDS: divalproex ER 500 mg Tablet (24H) 1000 MG PO ×2 (10:29→20:15)
[2019-05-30] MEDS: levothyroxine 125 mcg Tablet PO (10:30)
[2019-05-30] MEDS: OLANZapine 5 mg TABLET 2.5 MG PO ×2 (10:30→20:15)
[2019-05-30] MEDS: nicotine 21 mg Patch 1 PATCH TRANSDERMA (10:30)
--- NOTE | 2019-05-30 15:23 | PM.PN ---
Subjective Subjective: Interval history: She reports is feeling much better. Noted to be mostly laying down with her head toward the right side. She says that she does that chronically at home as well especially when going to sleep. Vitals/I&O/Wt Last Vital Signs Temp 98.4 F 05/30/19 08:00 Pulse 79 05/30/19 14:03 Resp 20 H 05/30/19 14:03 BP 126/70 05/30/19 12:00 Pulse Ox 93 05/30/19 14:03 05/30/19 05/30/19 05/30/19 06:59 14:59 22:59 Intake Total 700 / 700 Output Total 300 / 300 450 / 450 Balance -300 / -300 250 / 250 Weight last 48 hrs Weight 84.113 kg Weight 72.575 kg Physical Exam Const: COMMON NORMALS: no apparent distress, oriented x3 and alert GENERAL APPEARANCE: cooperative, limp and diaphoretic ORIENTATION/CONSCIOUSNESS: Yes oriented to person, Yes oriented to place and Yes oriented to time OTHER: Today much more alert, stronger and energetic. HENMT: COMMON NORMALS: moist oral mucous membranes and oropharynx normal Eye: VISUAL TUCKER: Yes other (Intact) Neck/C-Spine: COMMON NORMALS: negative for no JVD Resp: COMMON NORMALS: normal respiratory effort AUSCULTATION: wheezes Cardio: COMMON NORMALS: regular rhythm, S1 normal heart sound, S2 normal heart sound and no murmurs; negative for no JVD RHYTHM: regular rhythm HEART SOUNDS: S1 normal and S2 normal GI: COMMON NORMALS: normal to inspection, nondistended, normoactive bowel sounds, soft to palpation and non-tender PALPATION: Yes soft Extremity: COMMON NORMALS: no joint enlargement and no pedal edema Neuro: COMMON NORMALS: oriented x3, CN's II-XII intact bilaterally and moves all extremities SENSORIUM/ORIENTATION: Yes alert, Yes oriented to person, Yes oriented to place and Yes oriented to time SPEECH: speech normal SENSORY EXAM: Yes other (Symmetrical) MOTOR EXAM: No tremor and other (symmetrical) PUPIL EXAM: Normal pupillary reactivity/response: bilateral Skin: COMMON NORMALS: no rashes or lesions noted GENERAL SKIN EXAM: no rashes or lesions noted Urinary Catheter Management^: [place]: Cath Placed During This Visit: no Data : 05/30/19 04:24 05/30/19 04:24 Micro: Microbiology 05/29/19 14:00 Urine Culture - Preliminary Urine,Clean Catch Gram Negative Rods 05/29/19 13:46 Blood Culture - Preliminary Blood Gram Negative Rods 05/29/19 13:42 Blood Culture - Preliminary Blood Gram Negative Rods A&P Assessment and plan (1) Sepsis: Resolving. Fevers resolved. Leukocytosis down to 12.5. Tachycardia resolved. Severe sepsis due to urinary tract infection. Gram-negative bacteremia. Follow urine and blood cultures. Continue Rocephin. Status: Acute Qualifiers: Sepsis acute organ dysfunction status: unspecified Sepsis type: sepsis due to unspecified organism Qualified Code(s): A41.9 - Sepsis, unspecified organism Code(s): A41.9 - Sepsis, unspecified organism (2) Acute kidney injury: Creatinine with mild improvement down to 1.6. Normal baseline. She denies NSAID use at home. Kidney ultrasound without hydronephrosis. Status: Acute Code(s): N17.9 - Acute kidney failure, unspecified (3) Acute UTI: Appears to be complicated urinary tract infection with gram-negative mohinder bacteremia. Follow-up blood and urine culture. Continue Rocephin. On review of prior urine cultures several years ago had Klebsiella resistant to ampicillin, prior to that E. coli resistant to gentamicin. Status: Acute Code(s): N39.0 - Urinary tract infection, site not specified (4) Altered mental status: Acute encephalopathy secondary to sepsis, urinary tract infection improved. For now we will reduce dose of olanzapine, reduced dose of paroxetine. Advance diet. Status: Acute Qualifiers: Altered mental status type: disorientation Qualified Code(s): R41.0 - Disorientation, unspecified Code(s): R41.82 - Altered mental status, unspecified (5) CHF (congestive heart failure): Continue diuresis. Monitor blood pressures, volume status. Suspected diastolic congestive heart failure. Echocardiogram with normal ejection fraction. Troponin only mildly elevated, without significant delta. Status: Acute Qualifiers: Heart failure chronicity: acute Heart failure type: unspecified Qualified Code(s): I50.9 - Heart failure, unspecified Code(s): I50.9 - Heart failure, unspecified (6) COPD (chronic obstructive pulmonary disease): Currently appears in COPD exacerbation, with wheezing on exam, does have hypoxia. I am told at baseline does not use oxygen. On 8 L on presentation, currently down to 6 L. Continue breathing treatments. Continue oxygen support. Budesonide. Rocephin. Status: Chronic Code(s): J44.9 - Chronic obstructive pulmonary disease, unspecified (7) HTN (hypertension): Status: Chronic Code(s): I10 - Essential (primary) hypertension (8) Hypothyroidism: Status: Chronic Code(s): E03.9 - Hypothyroidism, unspecified (9) Depression: Status: Chronic Code(s): F32.9 - Major depressive disorder, single episode, unspecified (10) Schizophrenia: Status: Chronic Code(s): F20.9 - Schizophrenia, unspecified (11) Hyperammonemia: Status: Chronic Code(s): E72.20 - Disorder of urea cycle metabolism, unspecified Additional A&P Information Episode of tremor, brief unresponsiveness, possible seizure: Noted last night. Perhaps related to her severe sepsis. Will check valproic acid level. For now maintain in ICU. Monitor for recurrence. Attestations Medical Necessity Statement*: Continue admission for assessment management of severe sepsis, bacteremia. Coding Level of Care Code Acute Rail Splitter for g Fwd Diagnoses Sepsis A41.9 Sepsis acute organ dysfunction status: unspecified Sepsis type: sepsis due to unspecified organism Acute kidney injury N17.9 Acute UTI N39.0 Altered mental status R41.0 Altered mental status type: disorientation CHF (congestive heart failure) I50.9 Heart failure chronicity: acute Heart failure type: unspecified COPD (chronic obstructive pulmonary disease) J44.9 HTN (hypertension) I10 Hypothyroidism E03.9 Depression F32.9 Schizophrenia F20.9 Hyperammonemia E72.20
[2019-05-30 17:12] LABS: Valproic Acid Level 62.1 mcg/mL (50-100)
--- NOTE | 2019-05-30 18:05 | USCV_ITS ---
Leslie Urena Age: 73 Gender: F : 1945 Exam Date: 05/30/2019 09:22 Ordering Phys: Willis Conti MD Technologist: Anika Sawyer Exam Location: [facility] [place] Indication: CHF BP: 115 / 58 HR: 71 Rhythm: Sinus Technical Quality: Technically difficult study MEASUREMENTS (Male / Female) Normal Values 2D ECHO LV Diastolic Diameter PLAX 4.0 cm 4.2 - 5.9 / 3.9 - 5.3 cm LV Systolic Diameter PLAX 2.4 cm LV Chamber Size 2.5 cm IVS Diastolic Thickness 1.5 cm 0.6 - 1.0 / 0.6 - 0.9 cm IVS Systolic Thickness 1.5 cm LVPW Diastolic Thickness 0.8 cm 0.6 - 1.0 / 0.6 - 0.9 cm LVPW Systolic Thickness 1.3 cm RV Chamber Size 2.3 cm LVOT Diameter 2.0 cm LV Ejection Fraction 2D Teich 70.9 % LA Diameter 3.4 cm LA Width 2.4 cm LA Height 5.0 cm RA Width 2.5 cm RA Height 4.2 cm Aorta at Sinotubular Diameter 2.8 cm M-MODE LV Diastolic Diameter MM 5.1 cm 4.2 - 5.9 / 3.9 - 5.3 cm LV Systolic Diameter MM 3.2 cm LV Ejection Fraction MM Teich 66.8 % IVS Diastolic Thickness MM 1.4 cm 0.6 - 1.0 / 0.6 - 0.9 cm IVS Systolic Thickness MM 1.6 cm LVPW Diastolic Thickness MM 1.1 cm 0.6 - 1.0 / 0.6 - 0.9 cm LVPW Systolic Thickness MM 1.5 cm Aortic Annulus Diameter 3.1 cm LA Ao Ratio MM 1.1 MV E Point Septal Separation 0.6 cm DOPPLER AV Peak Velocity 100.0 cm/s LVOT Peak Velocity 94.0 cm/s AV Area Cont Eq vti 3.3 cm squared AV Area Cont Eq pk 2.9 cm squared MV Area PHT 2.8 cm squared Mitral E to A Ratio 0.6 MV E' Velocity 8.0 cm/s Mitral E to MV E' Ratio 10.2 Mitral E to LV E' Lateral Ratio 8.5 Mitral E to LV E' Septal Ratio 12.7 TV Peak E Velocity 77.0 cm/s Right Atrial Pressure 15.0 mmHg PV Peak Velocity 72.0 cm/s RV Acceleration Time 0.1 s RV Ejection Time 0.3 s RV AcT/ET 0.3 FINDINGS Left Ventricle Visualization is poor with the ventricle seen best in the parasternal views and somewhat in the subcostal view. There is mild left ventricular hypertrophy. The ventricle is probably normal in size and function. Specifics regarding wall motion disturbances cannot be determined. Grade 1 diastolic dysfunction. Ejection fraction is 60%. Right Ventricle Normal right ventricular size and systolic function. Right Atrium Right atrium not well visualized. Right atrial pressure 15 mmHg Left Atrium The left atrium is normal in size. Mitral Valve Mitral valve not well visualized. Aortic Valve Aortic valve not well visualized. No aortic stenosis Tricuspid Valve Tricuspid valve not well visualized. Tricuspid valve envelope not visualized well enough to determine pulmonary artery pressure Pulmonic Valve Pulmonic valve not well visualized. Pericardium Normal pericardium without effusion. Aorta Normal ascending aorta dimension. CONCLUSIONS Visualization is poor with the ventricle seen best in the parasternal views and somewhat in the subcostal view. There is mild left ventricular hypertrophy. The ventricle is probably normal in size and function. Specifics regarding wall motion disturbances cannot be determined. Grade 1 diastolic dysfunction. Ejection fraction is 60%. Right atrium not well visualized. Right atrial pressure 15 mmHg There are no prior echocardiogram studies to compare. Dr. Jacob Mera MD (Electronically Signed) Final Date: 30 May 2019 11:23 S
--- NOTE | 2019-05-30 18:29 | USR_ITS ---
PROCEDURE INFORMATION: Exam: US Retroperitoneal Complete, Kidneys and Bladder. Exam date and time: 05/30/2019 10:32 AM Age: 73 years old Clinical indication: Other: Sukumar TECHNIQUE: Imaging protocol: Real-time ultrasound of the retroperitoneum with image documentation. Complete exam focused on the kidneys and bladder. COMPARISON: [place] [id number] 07/22/2015 5:53 PM FINDINGS: Gallbladder: There are multiple gallstones in the gallbladder. There is no gallbladder wall thickening or pericholecystic fluid. Right kidney: There is 1.3 cm sized simple cyst arising from the lower pole of the right kidney. Right kidney is 11.4 cm in length with normal cortical thickness and echogenicity. There is no stone or hydronephrosis. Left kidney: Left kidney is 10.9 cm in length with normal cortical thickness and echogenicity. There is no stone or hydronephrosis. Aorta: Aorta has a normal diameter. Bladder: Urinary bladder is drained by a Seg[place] catheter. US/US renal BI* [id number] IMPRESSION: 1. No hydronephrosis. 2. Cholelithiasis
[2019-05-30] MEDS: acetaminophen 325 mg Tablet 650 MG PO (23:31)
[2019-05-31] VITALS (28 sets, daily range): BP systolic 98–175; BP diastolic 54–104; PULSE 63–120; RESP 17–37; TEMP 36.8–37; O2SAT 88–100
[2019-05-31] MEDS: cefTRIAXone 1,000 MG in sodium chloride 0.9% (plus) 50 ML 100 MG IV (00:38)
[2019-05-31] MEDS: ipratropium-albuterol 3 mL Neb INHALATION ×4 (02:06→20:00)
[2019-05-31 05:04] LABS: Basophils % 0.1 %; Hemoglobin 11.8 g/dL (11.5-15.3); Lymphocytes % 8.2 %; Mean Corpuscular HGB Conc 31.1 g/dL (30.0-36.0); Mean Corpuscular Hemoglobin 28.4 pg (28.0-34.0); Mean Corpuscular Volume 91.6 fL (81-99); Mean Platelet Volume 10.1 fL (7.4-10.4); Monocytes # 1.1 10^3/uL (0.2-0.9); Monocytes % 9.5 %; Neutrophils # 9.8 10^3/uL (1.8-7.7); Neutrophils % 81.4 %; Nucleated Red Blood Cells % 0.2 %; Platelet Count 223 10^3/cmm (130-400); Red Blood Count 4.15 10^6/uL (4.1-5.3); Red Cell Distribution Width 15.8 % (12.1-15.1)
[2019-05-31] MEDS: bumetanide 0.25 mg/mL SDV 10 mL 1 MG IV ×2 (05:09→19:21)
[2019-05-31 05:30] LABS: Alanine Aminotransferase 53 U/L (0-33); Albumin Level 2.8 g/dL (3.5-5.2); Alkaline Phosphatase 104 IU/L (35-105); Anion Gap 16.5 (5-19); Aspartate Amino Transferase 73 U/L (0-32); Blood Urea Nitrogen 49 mg/dL (8-23); Calcium 9.3 mg/Dl (8.8-10.2); Carbon Dioxide 30 mmol/L (22-29); Chloride 90 mmol/L (98-107); Globulin 4.3 g/dL (1.3-4.6); Glucose 130 mg/dL (74-106); Potassium 3.5 mmol/L (3.5-5.1); Sodium 133 mmol/L (136-145); Total Bilirubin 0.2 mg/dL (0.15-1.2); Total Protein 7.1 g/dL (6.6-8.7)
[2019-05-31] MEDS: heparin 5,000 unit/mL INJ 1 mL 5000 UNIT SUBCUT ×2 (06:22→19:22)
[2019-05-31] MEDS: nicotine 21 mg Patch 1 PATCH TRANSDERMA (08:19)
[2019-05-31] MEDS: levothyroxine 125 mcg Tablet PO (08:19)
[2019-05-31] MEDS: budesonide 0.5 mg/2 mL Neb 0.25 MG INHALATION ×2 (08:48→20:00)
--- NOTE | 2019-05-31 09:11 | PC.NURSE ---
Patient's states she takes Paxil daily at bedtime.
--- NOTE | 2019-05-31 09:32 | CTR_ITS ---
PROCEDURE INFORMATION: Exam: CT Chest Without Contrast Exam date and time: 05/31/2019 9:35 AM Age: 73 years old Clinical indication: Shortness of breath; Additional info: Hypoxia TECHNIQUE: Imaging protocol: Computed tomography of the chest without contrast. Total DLP: 740.19 mGy-cm Radiation optimization: All CT scans at this facility use at least one of these dose optimization techniques: automated exposure control; mA and/or kV adjustment per patient size (includes targeted exams where dose is matched to clinical indication); or iterative reconstruction. COMPARISON: [facility] Chest-Pulmonary Emb [id number] 02/27/2017 3:32 PM FINDINGS: The examination performed is mildly degraded by motion artifact. Lungs: Interstitial prominence and asymmetric airspace disease, the latter of which is disproportionately localized in the right lower lobe. Pleural space: Mild pleural thickening. Heart: Coronary artery calcification. Aorta: Calcification and ectasia of the thoracic aorta. Lymph nodes: Subcentimeter lymph nodes. Evaluation of the pascale is somewhat limited the absence of intravenous contrast. Diaphragm: Asymmetric elevation of the right hemidiaphragm. Bones/joints: Degenerative change and exaggerated thoracic kyphosis. Soft tissues: Unremarkable. CT/CT chest wo con [id number] IMPRESSION: 1. Interstitial prominence and asymmetric airspace disease, the latter of which is disproportionately localized in the right lower lobe. 2. Additional findings as described above. Radiation Dose CTDIVOL = (mGy): DLP = 740.19 (mGy-cm)
[2019-05-31 17:43] LABS: Glucose Point of Care 137 mg/dL (70-110)
--- NOTE | 2019-05-31 17:58 | PM.PN ---
Subjective Subjective: Interval history: She reports feeling much better. Denies any complaints. Vitals/I&O/Wt Last Vital Signs Temp 98.2 F 05/31/19 11:00 Pulse 118 H 05/31/19 16:00 Resp 29 H 05/31/19 16:00 BP 150/102 05/31/19 16:00 Pulse Ox 91 05/31/19 16:00 05/31/19 05/31/19 05/31/19 06:59 14:59 22:59 Intake Total 550 / 550 Output Total 650 / 1100 550 / 550 Balance -650 / -160 0 / 0 Weight last 48 hrs Weight 89.584 kg Weight 84.113 kg Physical Exam Const: COMMON NORMALS: no apparent distress, oriented x3 and alert GENERAL APPEARANCE: cooperative, limp and diaphoretic ORIENTATION/CONSCIOUSNESS: Yes oriented to person, Yes oriented to place and Yes oriented to time OTHER: Today much more alert, stronger and energetic. HENMT: COMMON NORMALS: moist oral mucous membranes and oropharynx normal MOUTH: moist mucous membranes abnormal (Cracked/cornified mucous membranes suggesting they were dry for a while, currently appearing more moist) Eye: VISUAL TUCKER: Yes other (Intact) Neck/C-Spine: COMMON NORMALS: negative for no JVD Resp: COMMON NORMALS: normal respiratory effort AUSCULTATION: wheezes Cardio: COMMON NORMALS: regular rhythm, S1 normal heart sound, S2 normal heart sound and no murmurs; negative for no JVD RHYTHM: regular rhythm HEART SOUNDS: S1 normal and S2 normal GI: COMMON NORMALS: normal to inspection, nondistended, normoactive bowel sounds, soft to palpation and non-tender PALPATION: Yes soft Extremity: COMMON NORMALS: no joint enlargement and no pedal edema Neuro: COMMON NORMALS: oriented x3, CN's II-XII intact bilaterally and moves all extremities SENSORIUM/ORIENTATION: Yes alert, Yes oriented to person, Yes oriented to place and Yes oriented to time SPEECH: speech normal SENSORY EXAM: Yes other (Symmetrical) MOTOR EXAM: No tremor and other (symmetrical) PUPIL EXAM: Normal pupillary reactivity/response: bilateral Skin: COMMON NORMALS: no rashes or lesions noted GENERAL SKIN EXAM: no rashes or lesions noted Urinary Catheter Management^: [place]: Cath Placed During This Visit: no Data : 05/31/19 04:25 05/31/19 04:25 Micro: Microbiology 05/29/19 14:00 Urine Culture - Final Urine,Clean Catch Escherichia coli A&P Assessment and plan (1) Sepsis: Improving. Fevers resolved. Leukocytosis down to 12. Tachycardia persistent. Severe sepsis due to urinary tract infection, E. coli. Gram-negative bacteremia. Follow blood cultures. Continue Rocephin. Status: Acute Qualifiers: Sepsis acute organ dysfunction status: unspecified Sepsis type: sepsis due to unspecified organism Qualified Code(s): A41.9 - Sepsis, unspecified organism Code(s): A41.9 - Sepsis, unspecified organism (2) Respiratory failure with hypoxia: Improving. Currently down to 6 L, compared to requiring 8 L nasal cannula on presentation. Reportedly normally is not on oxygen at home. This appears to be multifactorial, with underlying COPD, with exacerbation, but also in CHF exacerbation. Concern for aspiration, today noted by her RN coughing with some food and drink. Obtain CT chest, with interstitial prominence and asymmetric airspace disease, with latter disproportionately localized in right lower lobe. Will assess by modified barium swallow. For now empirically nectar thick liquids. Speech therapy assessment. Check urine bacterial antigens. Status: Acute Code(s): J96.91 - Respiratory failure, unspecified with hypoxia (3) Acute kidney injury: Creatinine with improvement. Normal baseline. She denies NSAID use at home. Kidney ultrasound without hydronephrosis. Status: Acute Code(s): N17.9 - Acute kidney failure, unspecified (4) Acute UTI: E. coli. Continue Rocephin. Follow-up blood culture. Status: Acute Code(s): N39.0 - Urinary tract infection, site not specified (5) Altered mental status: Acute encephalopathy secondary to sepsis, urinary tract infection improved. For now we will reduce dose of olanzapine, reduced dose of paroxetine. Advance diet. Status: Acute Qualifiers: Altered mental status type: disorientation Qualified Code(s): R41.0 - Disorientation, unspecified Code(s): R41.82 - Altered mental status, unspecified (6) CHF (congestive heart failure): Continue diuresis. Monitor blood pressures, volume status. Suspected diastolic congestive heart failure. Echocardiogram with normal ejection fraction. Troponin only mildly elevated, without significant delta. Status: Acute Qualifiers: Heart failure chronicity: acute Heart failure type: unspecified Qualified Code(s): I50.9 - Heart failure, unspecified Code(s): I50.9 - Heart failure, unspecified (7) COPD (chronic obstructive pulmonary disease): Currently appears in COPD exacerbation, with wheezing on exam, does have hypoxia. I am told at baseline does not use oxygen. On 8 L on presentation, currently down to 6 L. Continue breathing treatments. Continue oxygen support. Budesonide. Rocephin. Status: Chronic Code(s): J44.9 - Chronic obstructive pulmonary disease, unspecified (8) HTN (hypertension): Status: Chronic Code(s): I10 - Essential (primary) hypertension (9) Hypothyroidism: Status: Chronic Code(s): E03.9 - Hypothyroidism, unspecified (10) Depression: Status: Chronic Code(s): F32.9 - Major depressive disorder, single episode, unspecified (11) Schizophrenia: Status: Chronic Code(s): F20.9 - Schizophrenia, unspecified (12) Hyperammonemia: Status: Chronic Code(s): E72.20 - Disorder of urea cycle metabolism, unspecified Additional A&P Information Episode of tremor, brief unresponsiveness, possible seizure: Noted night of admission. Perhaps related to her severe sepsis. Without recurrence. Valproic acid level therapeutic. Monitor for recurrence. Attestations Medical Necessity Statement*: Continue admission for this morning of severe sepsis, hypoxic respiratory failure. Coding Level of Care Code Acute Invoice Classification Clerk for [facility] Fwd Diagnoses Sepsis A41.9 Sepsis acute organ dysfunction status: unspecified Sepsis type: sepsis due to unspecified organism Respiratory failure with hypoxia J96.91 Acute kidney injury N17.9 Acute UTI N39.0 Altered mental status R41.0 Altered mental status type: disorientation CHF (congestive heart failure) I50.9 Heart failure chronicity: acute Heart failure type: unspecified COPD (chronic obstructive pulmonary disease) J44.9 HTN (hypertension) I10 Hypothyroidism E03.9 Depression F32.9 Schizophrenia F20.9 Hyperammonemia E72.20
[2019-05-31] MEDS: OLANZapine 5 mg TABLET 2.5 MG PO (20:56)
[2019-05-31] MEDS: divalproex ER 500 mg Tablet (24H) 1000 MG PO (20:57)
[2019-05-31] MEDS: PARoxetine 20 mg Tablet 10 MG PO (20:57)
[2019-06-01] VITALS (30 sets, daily range): BP systolic 83–160; BP diastolic 46–96; PULSE 92–142; RESP 17–50; TEMP 36.6–38.3; O2SAT 82–95
[2019-06-01] MEDS: cefTRIAXone 1,000 MG in sodium chloride 0.9% (plus) 50 ML 100 MG IV (00:18)
[2019-06-01] MEDS: ipratropium-albuterol 3 mL Neb INHALATION ×4 (02:57→20:07)
[2019-06-01 04:19] LABS: Basophils % 0.1 %; Hematocrit 37.9 % (37.0-47.0); Hemoglobin 11.6 g/dL (11.5-15.3); Lymphocytes # 1.4 10^3/uL (0.8-4.8); Lymphocytes % 16.9 %; Mean Corpuscular HGB Conc 30.6 g/dL (30.0-36.0); Mean Corpuscular Hemoglobin 28.3 pg (28.0-34.0); Mean Corpuscular Volume 92.4 fL (81-99); Mean Platelet Volume 9.9 fL (7.4-10.4); Monocytes % 11.6 %; Neutrophils # 5.9 10^3/uL (1.8-7.7); Neutrophils % 70.6 %; Nucleated Red Blood Cells % 0 %; Platelet Count 214 10^3/cmm (130-400); Red Cell Distribution Width 16.3 % (12.1-15.1); White Blood Count 8.4 10^3/uL (4.0-10.0)
[2019-06-01 04:37] LABS: Alanine Aminotransferase 35 U/L (0-33); Albumin Level 2.4 g/dL (3.5-5.2); Alkaline Phosphatase 77 IU/L (35-105); Anion Gap 15.9 (5-19); Aspartate Amino Transferase 32 U/L (0-32); Blood Urea Nitrogen 36 mg/dL (8-23); Calcium 9.3 mg/Dl (8.8-10.2); Carbon Dioxide 34 mmol/L (22-29); Chloride 89 mmol/L (98-107); Globulin 4.1 g/dL (1.3-4.6); Glucose 89 mg/dL (74-106); Potassium 3.9 mmol/L (3.5-5.1); Sodium 135 mmol/L (136-145); Total Bilirubin 0.2 mg/dL (0.15-1.2); Total Protein 6.5 g/dL (6.6-8.7)
[2019-06-01] MEDS: bumetanide 0.25 mg/mL SDV 10 mL 1 MG IV ×2 (05:40→16:54)
[2019-06-01] MEDS: heparin 5,000 unit/mL INJ 1 mL 5000 UNIT SUBCUT (05:43)
--- NOTE | 2019-06-01 07:00 | NM_ITS ---
WS: [id number] NUCLEAR MEDICINE LUNG PERFUSION ONLY CLINICAL INFORMATION: hypoxia TECHNIQUE: Perfusion lung scan with 4.7 mCi technetium 99m MAA. Patient unable to perform ventilation portion. COMPARISON: CT chest 1 FINDINGS: Low lung volumes worse in the right. No large lobar or segmental perfusion defects to suggest pulmona ry embolus. Relatively symmetric bilateral anterior and posterior perfusion. SC/SC pul perfusion [id number] IMPRESSION: 1. Perfusion images only. Patient unable to perform ventilation. 2. No lobar or segmental perfusion defects to suggest pulmonary embolus.
[2019-06-01] MEDS: budesonide 0.5 mg/2 mL Neb 0.25 MG INHALATION ×2 (08:06→20:07)
[2019-06-01] MEDS: nicotine 21 mg Patch 1 PATCH TRANSDERMA (09:49)
[2019-06-01] MEDS: enoxaparin 100 mg/mL Syringe 90 MG SUBCUT ×2 (09:49→21:06)
[2019-06-01] MEDS: levothyroxine 125 mcg Tablet PO (09:50)
--- NOTE | 2019-06-01 18:05 | PC.CHAP ---
Pastoral Care Encounter/Spiritual Assessment Type of Contact [] Declined nutrition consultant visit [] Patient/Family/Request visit [] Outpatient visit [] Follow-up visit [] Physician referral [] Code/Alert [x] Routine visit [] Staff referral [] Actively dying [] Patient sleeping [] Family support [] [] Out of room [] Palliative care [] [] Receiving care in room [] Pre-surgical visit [] Trauma [] Long length of stay [x] ICU visit [] Other: Relational/Emotional Strength [x] Patient feels connected with others/family/visitors/staff [] Distress [] Loneliness/isolation [] Abandonment Spirituality of Patient [x] Person of Caridad [] Attends Latter-Day of their Caridad [x] Believes in Prayer [] Reads Bible or Yazidism materials [] There are Spiritual issues to be addressed Veterinary Medicine Doctor Interventions [x] Prayer [x] Active listening [x] Non-anxious presence [x] Spiritual/emotional support [] Crisis/trauma care [] Spiritual counseling [] Bereavement support [] Provided bereavement packet [] Provided Bible/devotional materials [] Provided toy/stuffed animal, coloring book to patient or family member [x] Completed spiritual assessment [] Provided Communion [] Anointing/Prather [] Salvation [] Other: Impact on Illness or Injury [] Angry [] Fearful [] Anxious [] Often cries [] Exhaustion [] Unable to work [] Unable to attend druze [] Unable to walk/stand [] Unable to read [] Unable to drive [] Unable to eat/drink [] Unable to sleep [] Unable to be with family [] Other: Summary Patient was alert and seemed to be having difficulty breathing and stated that she had a cold. Prayed with patient. Patient visited by Veterinary Medicine Doctor Joshua Orosco Time spent with patient 10 minutes
--- NOTE | 2019-06-01 18:57 | P.PN_ITS ---
Subjective Subjective: Interval history: Subjectively she is feeling better, asking when she might be returning home, however, does not appear to realize that she is still requiring a large amount of oxygen. Her is with her at the bedside. Vitals/I&O/Wt Last Vital Signs Temp 98.2 F 06/01/19 16:00 Pulse 111 H 06/01/19 18:00 Resp 38 H 06/01/19 18:00 BP 133/89 06/01/19 18:00 Pulse Ox 93 06/01/19 18:00 06/01/19 06/01/19 06/01/19 06:59 14:59 22:59 Intake Total 50 / 700 340 / 340 480 / 820 Output Total 500 / 1800 950 / 950 Balance -450 / -1100 340 / 340 -470 / -130 Weight last 48 hrs Weight 87.498 kg Weight 89.584 kg Physical Exam Const: COMMON NORMALS: no apparent distress, oriented x3 and alert GENERAL APPEARANCE: cooperative, limp and diaphoretic ORIENTATION/CONSCIOUSNESS: Yes oriented to person, Yes oriented to place and Yes oriented to time OTHER: Awake, alert, conversant. HENMT: COMMON NORMALS: oropharynx normal MOUTH: moist mucous membranes abnormal Eye: VISUAL TUCKER: Yes other (Intact) Neck/C-Spine: COMMON NORMALS: no JVD Resp: COMMON NORMALS: normal respiratory effort and clear to auscultation bilaterally AUSCULTATION: clear to auscultation bilaterally and diminished lung sounds bilateral in the lower lung tucker Cardio: COMMON NORMALS: no JVD, regular rhythm, S1 normal heart sound, S2 normal heart sound and no murmurs RATE: tachycardic RHYTHM: regular rhythm HEART SOUNDS: S1 normal and S2 normal GI: COMMON NORMALS: normal to inspection, nondistended, normoactive bowel sounds, soft to palpation and non-tender PALPATION: Yes soft Extremity: COMMON NORMALS: no joint enlargement and no pedal edema Neuro: COMMON NORMALS: oriented x3 and moves all extremities SENSORIUM/ORIENTATION: Yes alert, Yes oriented to person, Yes oriented to place and Yes oriented to time SPEECH: speech normal SENSORY EXAM: Yes other (Symmetrical) MOTOR EXAM: No tremor and other (symmetrical) PUPIL EXAM: Normal pupillary reactivity/response: bilateral Skin: COMMON NORMALS: no rashes or lesions noted GENERAL SKIN EXAM: no rashes or lesions noted Data : 06/01/19 03:25 06/01/19 03:25 Micro: Microbiology 05/29/19 13:42 Blood Culture - Preliminary Blood Escherichia coli 05/31/19 21:00 Legionella Urinary Antigen - Final Urine,Voided Bacterial Antigens - Final A&P Assessment and plan (1) Sepsis: Has been improving, with resolution of leukocytosis with fevers resolved, however, now with worsening of tachycardia, hypoxia. Initially sepsis secondary to complicated urinary tract infection, with E. coli bacteremia, initially responding to Rocephin. Due to concern for aspiration with initial episode of acute encephalopathy, now apparent interstitial opacities, more prominent in the right lower lobe, will broaden antibiotics with Zosyn, Levaquin. On empirically thickened diet with nectar thick liquids. High flow oxygen. Pending MBS once she is more stable. Status: Acute Qualifiers: Sepsis acute organ dysfunction status: unspecified Sepsis type: sepsis due to unspecified organism Qualified Code(s): A41.9 - Sepsis, unspecified organism Code(s): A41.9 - Sepsis, unspecified organism (2) Respiratory failure with hypoxia: Worsened hypoxia today, requiring up to 10 L high flow oxygen. Multifactorial, but suspected mostly secondary to aspiration, perhaps during initial episode of encephalopathy, with right lower lobe interstitial prominence. Due to concern for aspiration, antibiotics broadened to Zosyn, Levaquin. This morning discussed with her and her regarding concern for possible PE with tachycardia, progressive hypoxia, and was empirically started on anticoagulation. VQ scan was obtained. No lobar or segmental perfusion defects noted, with only perfusion portion able to be performed. On TTE PA pressure could not be obtained due to incomplete visualization of the cuspid valve, however, her RA pressure is somewhat elevated, with elevated TV velocity which may suggest elevation of PA pressure, possibly with pulmonary hypertension, and at this time given her clinical condition would continue anticoagulation due to still high concern for PE, unless other contraindication arises until additional assessment by CTA can be obtained. If oxygenation not improving after adjustments consider consultation with pulmonary service. Continue diuresis for congestive heart failure. Likely also contribution from chronic COPD, although does not appear in exacerbation currently. Urine bacterial antigens negative. Rapid flu negative. Status: Acute Code(s): J96.91 - Respiratory failure, unspecified with hypoxia (3) Acute kidney injury: Creatinine with improvement. Normal baseline. She denies NSAID use at home. Kidney ultrasound without hydronephrosis. Status: Acute Code(s): N17.9 - Acute kidney failure, unspecified (4) Acute UTI: E. coli. With E. coli bacteremia. Switched to Zosyn, Levaquin due to concern for aspiration pneumonia. Status: Acute Code(s): N39.0 - Urinary tract infection, site not specified (5) Altered mental status: Acute encephalopathy secondary to sepsis, urinary tract infection resolved. For now we reduced dose of olanzapine, paroxetine. Status: Acute Qualifiers: Altered mental status type: disorientation Qualified Code(s): R41.0 - Disorientation, unspecified Code(s): R41.82 - Altered mental status, unspecified (6) CHF (congestive heart failure): Continue diuresis. Monitor blood pressures, volume status. Diastolic congestive heart failure. Echocardiogram with normal ejection fracti on. Troponin only mildly elevated, without significant delta. Status: Acute Qualifiers: Heart failure chronicity: acute Heart failure type: unspecified Qualified Code(s): I50.9 - Heart failure, unspecified Code(s): I50.9 - Heart failure, unspecified (7) COPD (chronic obstructive pulmonary disease): Does not appear to be in COPD exacerbation any longer. Continue breathing treatments. Continue oxygen support. Budesonide. Rocephin. Status: Chronic Code(s): J44.9 - Chronic obstructive pulmonary disease, unspecified (8) HTN (hypertension): Status: Chronic Code(s): I10 - Essential (primary) hypertension (9) Hypothyroidism: Status: Chronic Code(s): E03.9 - Hypothyroidism, unspecified (10) Depression: Status: Chronic Code(s): F32.9 - Major depressive disorder, single episode, unspecified (11) Schizophrenia: Status: Chronic Code(s): F20.9 - Schizophrenia, unspecified (12) Hyperammonemia: Status: Chronic Code(s): E72.20 - Disorder of urea cycle metabolism, unspecified Additional A&P Information Episode of tremor, brief unresponsiveness, possible seizure: Noted night of admission. Perhaps related to her severe sepsis. Without recurrence. Valproic acid level therapeutic. Monitor for recurrence. Attestations Medical Necessity Statement*: Continue admission for assessment of management of acute respiratory failure with hypoxia. Complicated UTI with gram-negative bacteremia. Critical Care Time: In addition to noncritical issues, 7 minutes critical care time spent on assessment of management of worsening acute respiratory failure with hypoxia. Critical Care Time (min): 7 Coding Level of Care Code Acute Community Education Coordinator for [facility] Fwd Diagnoses Sepsis A41.9 Sepsis acute organ dysfunction status: unspecified Sepsis type: sepsis due to unspecified organism Respiratory failure with hypoxia J96.91 Acute kidney injury N17.9 Acute UTI N39.0 Altered mental status R41.0 Altered mental status type: disorientation CHF (congestive heart failure) I50.9 Heart failure chronicity: acute Heart failure type: unspecified COPD (chronic obstructive pulmonary disease) J44.9 HTN (hypertension) I10 Hypothyroidism E03.9 Depression F32.9 Schizophrenia F20.9 Hyperammonemia E72.20
[2019-06-01] MEDS: levofloxacin-dextrose 5 % 750 MG/150 ML PREMIX 150 MG IV (19:21)
[2019-06-01] MEDS: acetaminophen 325 mg Tablet 650 MG PO (21:05)
[2019-06-01] MEDS: OLANZapine 5 mg TABLET 2.5 MG PO (21:06)
[2019-06-01] MEDS: PARoxetine 20 mg Tablet 10 MG PO (21:06)
[2019-06-01] MEDS: divalproex ER 500 mg Tablet (24H) 1000 MG PO (21:07)
[2019-06-01] MEDS: piperacillin-tazobactam 3.375 GM in sodium chloride 0.9% (plus) 50 ML IV (21:07)
--- NOTE | 2019-06-01 22:22 | XR_ITS ---
WS: [id number] CHEST XRAY TECHNIQUE: Portable chest. CLINICAL INFORMATION: ET TUBE COMPARISON: FINDINGS: Endotracheal tube with tip 1.7 cm above the frank. Enteric tube tip below diaphragm. Shallow inspira tion. Heart: Normal cardiac silhouette. Lungs: Elevation hemidiaphragm. Mild pulmonary vascular congestion slightly improved from previous. N o focal pneumonia. Bones: Normal visualized bony structures. XR/XR chest 1V portable [id number] IMPRESSION: 1. Endotracheal tube with tip 1.7 cm above the frank. Enteric tube with tip b elow the diaphragm. 2. Elevation hemidiaphragm. Shallow inspiration. Mild pulmonary vascular conge stion.
--- NOTE | 2019-06-01 22:30 | PC.NURSE ---
STATUS CHANGE RESPIRATORY IN ROOM, PT IN RESPIRATORY DISTRESS. DR WHITT WAS CALLED, HE CAME AND ASSESSED PT. PT SKIN STARTING TO MOTTLE. PT WAS BREATHING 50 TIMES A MINUTE, HEART RATE HITTING AND SUSTAINING ABOVE 140. DR WHITT GAVE ORDER TO INTUBATE. DR TORRES CAME TO ROOM. 20 ETOMIDATE WAS GIVEN, THEN [address] TORRES INTUBATED PT AT 2225 WITH SIZE 8 ET TUBE AND 24 AT THE LIP.
--- NOTE | 2019-06-01 22:30 | PM.EVENT ---
Event Note Event Note: I was called by RT for tachypnea I evaluated the patient on stat basis while I was doing admission. Pt was encephalopathic, tachypnic in 40s was failing high flow O2 intervention and later on bipap Decision was made to intubate for hypoxic respiratory failure and ecncephalopathy Pt was not oriented at all Cold mottled extremeties and temp 101 B/l ronchi abd soft BP 128/47, sat 90%on bipap RR 40s HR 140s tremors+ Dr Baez intubated the patient using etomidate 20mg and succinylcholine 150mg, glideoscope was used to visualize the vocal cordsm, ET 8 was used at secured at first attempt at 24, pending CXR for confirmation NG to be placed as well No complication no EBL
[2019-06-01] MEDS: etomidate 10 ML 1 MG (22:50)
[2019-06-01] MEDS: succinylcholine 20 mg/mL SDV 10mL 200 MG (22:52)
[2019-06-01] MEDS: propofol 1,000 MG/100 ML INJ 15.7 MG (23:09)
[2019-06-01] MEDS: sodium chloride 0.9% 250 ML IV (23:29)
[2019-06-02] VITALS (39 sets, daily range): BP systolic 79–111; BP diastolic 51–81; PULSE 84–134; RESP 12–28; TEMP 36.7–37.9; O2SAT 93–98
--- NOTE | 2019-06-02 | PC.NURSE ---
CENTRAL LINE PLACEMENT DR WILKERSON CAME AND PLACED CENTRAL LINE IN RIGHT FEMORAL PER DR WHITT REQUEST. PT TOLERATED WELL. MEDICATIONS RUNNING THROUGH CENTRAL LINE.
--- NOTE | 2019-06-02 01:01 | PC.NURSE ---
PT WAS CALLED TO GIVE UPDATE ON PT, NO ANSWER.
[2019-06-02 02:05] LABS: ABG PCO2 47.5 mmHg (35-45); HCO3 ABG 37.8 mmol/L (22-26)
[2019-06-02 02:06] LABS: Base Excess ABG 12.9 mmol/L (-2.0-2.0); Blood Gas Allen Test pos; Oxygen Device bipap
[2019-06-02 02:07] LABS: BIPAP 16/8
[2019-06-02 02:08] LABS: ABG PH Result 7.51 (7.35-7.45)
[2019-06-02 02:09] LABS: ABG PCO2 45.1 mmHg (35-45); ABG PH Result 7.51 (7.35-7.45); HCO3 ABG 35.5 mmol/L (22-26)
[2019-06-02 02:10] LABS: Oxygen Device vent
[2019-06-02] MEDS: ipratropium-albuterol 3 mL Neb INHALATION ×4 (02:50→21:37)
--- NOTE | 2019-06-02 03:53 | W.ED.AMS ---
HPI - Altered Mental Status General: Chief Complaint: Altered Mental Status Stated Complaint: ALTERED MENTAL STATUS Time Seen by Provider: 05/29/19 13:22 History of Present Illness: Severity: moderate PFSH ED PFSH: Statuses (acute, chronic, etc) shown below reflect problem list status as previously entered and may not be historically accurate Medical History COPD (chronic obstructive pulmonary disease) (Acute) Depression (Acute) HTN (hypertension) (Acute) Hyperammonemia (Acute) Hypothyroidism (Acute) Schizophrenia (Acute) Social History Smoking and tobacco status: current every day smoker cigarettes Packs smoked per day: 1 Alcohol intake: current Alcohol intake frequency: holidays/special occasions only Substance/Drug Use: never Household members: spouse Marital status: Physical Exam Urinary Catheter Management^: [place]: Cath Placed During This Visit: no Procedures Central Line Placement Right Femoral: Time Out Performed: Yes Patient Placed on Monitor/Pulse Ox: Yes MD Prep: mask, gown and gloves Central Line Prep: Povidone-Iodine 1% and Chlorhexidine scrub Central Line Lumen Inserted: triple Post Procedure: sutured in place, good blood return, all ports aspirated, flushed, capped and sterile dressing applied Post Procedure X-Ray: tip of catheter in good position Patient Tolerated Procedure: well Additional Comments: All lines flushed well. Medicines reviewed without difficulty. Pelvis x-ray was later performed which show line in appropriate position. Course Vital Signs: Vital signs: Vital Signs Temperature 99.6 F 06/02/19 02:00 Pulse Rate 122 H 06/02/19 02:51 Respiratory Rate 16 06/02/19 02:51 Blood Pressure 99/69 06/02/19 02:00 Pulse Oximetry 96 06/02/19 02:51 MDM - Altered Mental Status Lab Data: Labs: Lab Results 05/29/19 05/29/19 05/29/19 Range/Units 13:42 13:42 13:42 WBC 15.4 H (4.0-10.0) 10^3/ uL RBC 4.28 (4.1-5.3) 10^6/u L Hgb 12.2 (11.5-15.3) g/dL Hct 38.9 (37.0-47.0) % MCV 90.9 (81-99) fL MCH 28.5 (28.0-34.0) pg MCHC 31.4 (30.0-36.0) g/dL RDW 15.9 H (12.1-15.1) % Plt Count 216 (130-400) 10^3/c mm MPV 9.8 (7.4-10.4) fL Neut % (Auto) 81.9 % Lymph % (Auto) 7.7 % [place] % (Auto) 9.6 % Eos % (Auto) 0.0 % Baso % (Auto) 0.1 % Neut # (Auto) 12.6 H (1.8-7.7) 10^3/u L Lymph # (Auto) 1.2 (0.8-4.8) 10^3/u L [place] # (Auto) 1.5 H (0.2-0.9) 10^3/u L Eos # (Auto) 0.0 (0.0-0.8) 10^3/u L Baso # (Auto) 0.0 (0.0-0.1) 10^3/u L Nucleated RBC % (a uto) 0 % Nucleated RBCs # 0.0 /100WBC ESR 96 H (0-15) mm/hr PT 15.90 H (10.5-13.3) SECO NDS INR 1.23 H (0.8-1.2) APTT 27.4 (23.9-36.7) SECO NDS Specimen Type Sample Site ABG pH (7.35-7.45) ABG pCO2 (35-45) mmHg ABG pO2 (80.0-100.0) mmH g ABG HCO3 (22-26) mmol/L ABG Base Excess (-2.0-2.0) mmol/ L Shiv Test Hematocrit (37-47) % O2 Delivery Device O2 Liters/Min % Data Analytics Architect ID Sodium (136-145) mmol/L Potassium (3.5-5.1) mmol/L Chloride (98-107) mmol/L Carbon Dioxide (22-29) mmol/L Anion Gap (5-19) BUN (8-23) mg/dL Creatinine (0.5-0.9) mg/dL Glucose (74-106) mg/dL Lactate (0.5-2.2) mmol/L Calcium (8.8-10.2) mg/Dl Magnesium (1.7-2.3) mg/dL Total Bilirubin (0.15-1.2) mg/dL AST (0-32) U/L ALT (0-33) U/L Alkaline Phosphata se (35-105) IU/L NT-Pro-B Natriuret Pep (0-125) pg/mL Total Protein (6.6-8.7) g/dL Albumin (3.5-5.2) g/dL Globulin (1.3-4.6) g/dL Urine Color (Yellow) Urine Appearance (CLEAR) Urine pH (5-7) Ur Specific Gravit y (1.005-1.030) Urine Protein (Negative) Urine Glucose (UA) (Normal) Urine Ketones (Negative) Urine Occult Blood (Negative) Urine Nitrate (Negative) Urine Bilirubin (NEGATIVE) Urine Urobilinogen (Negative) mg/dL Ur Leukocyte Tammy ase (Negative) Urine RBC (0-2) /hpf Urine WBC (0-5) /hpf Ur Squamous Epith Cells (0-5) Ur Transition Epit h Cell /hpf Urine Bacteria (NONE) Hyaline Casts Urine Mucus Ur Random Sodium mmol/L Urine Creatinine (28-217) mg/dL Urine Opiates Scre en (Negative) ng/mL Ur Barbiturates Sc reen (Negative) ng/mL Ur Phencyclidine S crn (Negative) ng/mL Ur Amphetamines Sc reen (Negative) ng/mL U Benzodiazepines Scrn (Negative) ng/mL Urine Cocaine Scre en (Negative) ng/mL U Marijuana (THC) Screen (Negative) ng/mL Serum Ketones (Negative) Influenza Type A A g (Negative) POC Influenza B Ag (Negative) 05/29/19 05/29/19 05/29/19 Range/Units 13:42 13:42 13:46 WBC (4.0-10.0) 10^3/ uL RBC (4.1-5.3) 10^6/u L Hgb (11.5-15.3) g/dL Hct (37.0-47.0) % MCV (81-99) fL MCH (28.0-34.0) pg MCHC (30.0-36.0) g/dL RDW (12.1-15.1) % Plt Count (130-400) 10^3/c mm MPV (7.4-10.4) fL Neut % (Auto) % Lymph % (Auto) % [place] % (Auto) % Eos % (Auto) % Baso % (Auto) % Neut # (Auto) (1.8-7.7) 10^3/u L Lymph # (Auto) (0.8-4.8) 10^3/u L [place] # (Auto) (0.2-0.9) 10^3/u L Eos # (Auto) (0.0-0.8) 10^3/u L Baso # (Auto) (0.0-0.1) 10^3/u L Nucleated RBC % (a uto) % Nucleated RBCs # /100WBC ESR (0-15) mm/hr PT (10.5-13.3) SECO NDS INR (0.8-1.2) APTT (23.9-36.7) SECO NDS Specimen Type Sample Site ABG pH (7.35-7.45) ABG pCO2 (35-45) mmHg ABG pO2 (80.0-100.0) mmH g ABG HCO3 (22-26) mmol/L ABG Base Excess (-2.0-2.0) mmol/ L Shiv Test Hematocrit (37-47) % O2 Delivery Device O2 Liters/Min % Data Analytics Architect ID Sodium 132 L (136-145) mmol/L Potassium 4.5 (3.5-5.1) mmol/L Chloride 93 L (98-107) mmol/L Carbon Dioxide 25 (22-29) mmol/L Anion Gap 18.5 (5-19) BUN 45 H (8-23) mg/dL Creatinine 1.7 H (0.5-0.9) mg/dL Glucose 210 H (74-106) mg/dL Lactate 1.8 (0.5-2.2) mmol/L Calcium 9.6 (8.8-10.2) mg/Dl Magnesium 2.3 (1.7-2.3) mg/dL Total Bilirubin 0.4 (0.15-1.2) mg/dL AST 52 H (0-32) U/L ALT 17 (0-33) U/L Alkaline Phosphata se 92 (35-105) IU/L NT-Pro-B Natriuret Pep 1355 H (0-125) pg/mL Total Protein 7.9 (6.6-8.7) g/dL Albumin 3.4 L (3.5-5.2) g/dL Globulin 4.5 (1.3-4.6) g/dL Urine Color (Yellow) Urine Appearance (CLEAR) Urine pH (5-7) Ur Specific Gravit y (1.005-1.030) Urine Protein (Negative) Urine Glucose (UA) (Normal) Urine Ketones (Negative) Urine Occult Blood (Negative) Urine Nitrate (Negative) Urine Bilirubin (NEGATIVE) Urine Urobilinogen (Negative) mg/dL Ur Leukocyte Tammy ase (Negative) Urine RBC (0-2) /hpf Urine WBC (0-5) /hpf Ur Squamous Epith Cells (0-5) Ur Transition Epit h Cell /hpf Urine Bacteria (NONE) Hyaline Casts Urine Mucus Ur Random Sodium mmol/L Urine Creatinine (28-217) mg/dL Urine Opiates Scre en (Negative) ng/mL Ur Barbiturates Sc reen (Negative) ng/mL Ur Phencyclidine S crn (Negative) ng/mL Ur Amphetamines Sc reen (Negative) ng/mL U Benzodiazepines Scrn (Negative) ng/mL Urine Cocaine Scre en (Negative) ng/mL U Marijuana (THC) Screen (Negative) ng/mL Serum Ketones Negative (Negative) Influenza Type A A g (Negative) POC Influenza B Ag (Negative) 05/29/19 05/29/19 05/29/19 Range/Units 13:54 14:00 14:00 WBC (4.0-10.0) 10^3/ uL RBC (4.1-5.3) 10^6/u L Hgb (11.5-15.3) g/dL Hct (37.0-47.0) % MCV (81-99) fL MCH (28.0-34.0) pg MCHC (30.0-36.0) g/dL RDW (12.1-15.1) % Plt Count (130-400) 10^3/c mm MPV (7.4-10.4) fL Neut % (Auto) % Lymph % (Auto) % [place] % (Auto) % Eos % (Auto) % Baso % (Auto) % Neut # (Auto) (1.8-7.7) 10^3/u L Lymph # (Auto) (0.8-4.8) 10^3/u L [place] # (Auto) (0.2-0.9) 10^3/u L Eos # (Auto) (0.0-0.8) 10^3/u L Baso # (Auto) (0.0-0.1) 10^3/u L Nucleated RBC % (a uto) % Nucleated RBCs # /100WBC ESR (0-15) mm/hr PT (10.5-13.3) SECO NDS INR (0.8-1.2) APTT (23.9-36.7) SECO NDS Specimen Type Arterial Sample Site Radial, right ABG pH 7.43 (7.35-7.45) ABG pCO2 41.9 (35-45) mmHg ABG pO2 78.2 L (80.0-100.0) mmH g ABG HCO3 27.5 H (22-26) mmol/L ABG Base Excess 2.8 H (-2.0-2.0) mmol/ L Shiv Test Pos Hematocrit 39.6 (37-47) % O2 Delivery Device Simple mask O2 Liters/Min 7.0 % Data Analytics Architect ID jmn Sodium (136-145) mmol/L Potassium (3.5-5.1) mmol/L Chloride (98-107) mmol/L Carbon Dioxide (22-29) mmol/L Anion Gap (5-19) BUN (8-23) mg/dL Creatinine (0.5-0.9) mg/dL Glucose (74-106) mg/dL Lactate (0.5-2.2) mmol/L Calcium (8.8-10.2) mg/Dl Magnesium (1.7-2.3) mg/dL Total Bilirubin (0.15-1.2) mg/dL AST (0-32) U/L ALT (0-33) U/L Alkaline Phosphata se (35-105) IU/L NT-Pro-B Natriuret Pep (0-125) pg/mL Total Protein (6.6-8.7) g/dL Albumin (3.5-5.2) g/dL Globulin (1.3-4.6) g/dL Urine Color Yellow (Yellow) Urine Appearance Hazy A (CLEAR) Urine pH 5 (5-7) Ur Specific Gravit y 1.020 (1.005-1.030) Urine Protein 3+ H (Negative) Urine Glucose (UA) Norm (Normal) Urine Ketones 1+ H (Negative) Urine Occult Blood 3+ H (Negative) Urine Nitrate Negative (Negative) Urine Bilirubin 1+ H (NEGATIVE) Urine Urobilinogen 4 H (Negative) mg/dL Ur Leukocyte Tammy ase 2+ H (Negative) Urine RBC 25-40 H (0-2) /hpf Urine WBC 80-100 H (0-5) /hpf Ur Squamous Epith Cells 5-10 H (0-5) Ur Transition Epit h Cell 0-4 /hpf Urine Bacteria 1+ H (NONE) Hyaline Casts Rare Urine Mucus Trace Ur Random Sodium mmol/L Urine Creatinine (28-217) mg/dL Urine Opiates Scre en Negative (Negative) ng/mL Ur Barbiturates Sc reen Negative (Negative) ng/mL Ur Phencyclidine S crn Negative (Negative) ng/mL Ur Amphetamines Sc reen Negative (Negative) ng/mL U Benzodiazepines Scrn Negative (Negative) ng/mL Urine Cocaine Scre en Negative (Negative) ng/mL U Marijuana (THC) Screen Negative (Negative) ng/mL Serum Ketones (Negative) Influenza Type A A g (Negative) POC Influenza B Ag (Negative) 05/29/19 05/29/19 Range/Units 14:00 14:41 WBC (4.0-10.0) 10^3/ uL RBC (4.1-5.3) 10^6/u L Hgb (11.5-15.3) g/dL Hct (37.0-47.0) % MCV (81-99) fL MCH (28.0-34.0) pg MCHC (30.0-36.0) g/dL RDW (12.1-15.1) % Plt Count (130-400) 10^3/c mm MPV (7.4-10.4) fL Neut % (Auto) % Lymph % (Auto) % [place] % (Auto) % Eos % (Auto) % Baso % (Auto) % Neut # (Auto) (1.8-7.7) 10^3/u L Lymph # (Auto) (0.8-4.8) 10^3/u L [place] # (Auto) (0.2-0.9) 10^3/u L Eos # (Auto) (0.0-0.8) 10^3/u L Baso # (Auto) (0.0-0.1) 10^3/u L Nucleated RBC % (a uto) % Nucleated RBCs # /100WBC ESR (0-15) mm/hr PT (10.5-13.3) SECO NDS INR (0.8-1.2) APTT (23.9-36.7) SECO NDS Specimen Type Sample Site ABG pH (7.35-7.45) ABG pCO2 (35-45) mmHg ABG pO2 (80.0-100.0) mmH g ABG HCO3 (22-26) mmol/L ABG Base Excess (-2.0-2.0) mmol/ L Shiv Test Hematocrit (37-47) % O2 Delivery Device O2 Liters/Min % Data Analytics Architect ID Sodium (136-145) mmol/L Potassium (3.5-5.1) mmol/L Chloride (98-107) mmol/L Carbon Dioxide (22-29) mmol/L Anion Gap (5-19) BUN (8-23) mg/dL Creatinine (0.5-0.9) mg/dL Glucose (74-106) mg/dL Lactate (0.5-2.2) mmol/L Calcium (8.8-10.2) mg/Dl Magnesium (1.7-2.3) mg/dL Total Bilirubin (0.15-1.2) mg/dL AST (0-32) U/L ALT (0-33) U/L Alkaline Phosphata se (35-105) IU/L NT-Pro-B Natriuret Pep (0-125) pg/mL Total Protein (6.6-8.7) g/dL Albumin (3.5-5.2) g/dL Globulin (1.3-4.6) g/dL Urine Color (Yellow) Urine Appearance (CLEAR) Urine pH (5-7) Ur Specific Gravit y (1.005-1.030) Urine Protein (Negative) Urine Glucose (UA) (Normal) Urine Ketones (Negative) Urine Occult Blood (Negative) Urine Nitrate (Negative) Urine Bilirubin (NEGATIVE) Urine Urobilinogen (Negative) mg/dL Ur Leukocyte Tammy ase (Negative) Urine RBC (0-2) /hpf Urine WBC (0-5) /hpf Ur Squamous Epith Cells (0-5) Ur Transition Epit h Cell /hpf Urine Bacteria (NONE) Hyaline Casts Urine Mucus Ur Random Sodium 29 mmol/L Urine Creatinine 295 H (28-217) mg/dL Urine Opiates Scre en (Negative) ng/mL Ur Barbiturates Sc reen (Negative) ng/mL Ur Phencyclidine S crn (Negative) ng/mL Ur Amphetamines Sc reen (Negative) ng/mL U Benzodiazepines Scrn (Negative) ng/mL Urine Cocaine Scre en (Negative) ng/mL U Marijuana (THC) Screen (Negative) ng/mL Serum Ketones (Negative) Influenza Type A A g Negative (Negative) POC Influenza B Ag Negative (Negative) Discharge Plan Discharge Patient Disposition: Admitted As Inpatient Admit Provider: Willis Conti Clinical Impression: Acute UTI Altered mental status Qualifiers: Altered mental status type: disorientation Qualified Code(s): R41.0 - Disorientation, unspecified Sepsis Qualifiers: Sepsis type: sepsis due to unspecified organism Sepsis acute organ dysfunction status: unspecified Qualified Code(s): A41.9 - Sepsis, unspecified organism CHF (congestive heart failure) Qualifiers: Heart failure type: unspecified Heart failure chronicity: acute Qualified Code(s): I50.9 - Heart failure, unspecified Condition: Stable Referrals: Ash Arevalo MD [Family Provider] - Discharge Date/Time: 05/29/19 18:07 Coding Level of Care Code ED Motion Graphics Artist for Hanh Medeiros
--- NOTE | 2019-06-02 04:11 | XR_ITS ---
WS: [id number] PELVIS TECHNIQUE: 1 view(s) of the pelvis CLINICAL INFORMATION: requests COMPARISON: None. FINDINGS: Right femoral catheter. Partially visualized enteric tube with tip in the distal stomach. Degenerativ e change lumbar spine. Pelvic phleboliths. XR/XR pelvis 1-2V* [id number] IMPRESSION: 1. Right femoral catheter. 2. Partially visualized enteric tube in the distal stomach.
[2019-06-02 04:24] LABS: Basophils % 0.2 %; Eosinophils % 0.2 %; Hemoglobin 12.1 g/dL (11.5-15.3); Lymphocytes # 1.1 10^3/uL (0.8-4.8); Lymphocytes % 6.2 %; Mean Corpuscular Hemoglobin 28.3 pg (28.0-34.0); Mean Corpuscular Volume 91.3 fL (81-99); Mean Platelet Volume 10.3 fL (7.4-10.4); Monocytes # 1.2 10^3/uL (0.2-0.9); Monocytes % 6.5 %; Neutrophils # 15.4 10^3/uL (1.8-7.7); Nucleated Red Blood Cells % 0 %; Platelet Count 246 10^3/cmm (130-400); Red Blood Count 4.27 10^6/uL (4.1-5.3); Red Cell Distribution Width 16.8 % (12.1-15.1); White Blood Count 18.3 10^3/uL (4.0-10.0)
[2019-06-02 04:27] LABS: ABG PCO2 52.6 mmHg (35-45); ABG PH Result 7.43 (7.35-7.45); Arterial Blood Gas Hematocrit 40.8 % (37-47); Base Excess ABG 9.1 mmol/L (-2.0-2.0); Blood Gas Sample Site Brachial, right; Blood Gas Sample Type Arterial; Blood Gas Tidal Volume 0.4; HCO3 ABG 35.1 mmol/L (22-26); Oxygen Device VENT
[2019-06-02 04:41] LABS: Alanine Aminotransferase 23 U/L (0-33); Albumin Level 2.5 g/dL (3.5-5.2); Alkaline Phosphatase 88 IU/L (35-105); Anion Gap 16.7 (5-19); Aspartate Amino Transferase 26 U/L (0-32); Blood Urea Nitrogen 43 mg/dL (8-23); Calcium 9.1 mg/Dl (8.8-10.2); Carbon Dioxide 34 mmol/L (22-29); Chloride 85 mmol/L (98-107); Globulin 4.3 g/dL (1.3-4.6); Glucose 237 mg/dL (74-106); Potassium 3.7 mmol/L (3.5-5.1); Sodium 132 mmol/L (136-145); Total Bilirubin 0.4 mg/dL (0.15-1.2); Total Protein 6.8 g/dL (6.6-8.7)
[2019-06-02] MEDS: bumetanide 0.25 mg/mL SDV 10 mL 1 MG IV ×2 (05:47→17:16)
--- NOTE | 2019-06-02 06:00 | XR_ITS ---
WS: [id number] CHEST XRAY TECHNIQUE: Portable chest. CLINICAL INFORMATION: Hypoxia COMPARISON: FINDINGS: Tubes/Lines: Endotracheal tube with tip above the frank measuring 1.4 CM. Enteric tube with tip belo w the diaphragm. Heart: Normal cardiac silhouette. Aortic calcification. Lungs: Chronic emphysematous changes. Mild pulmonary vascular congestion. No focal pneumonia. Bones: Normal visualized bony structures. XR/XR chest 1V portable [id number] IMPRESSION: 1. Endotracheal tube with tip above the frank. Enteric tube with tip below th e diaphragm. 2. Chronic emphysematous changes with mild pulmonary vascular congestion.
--- NOTE | 2019-06-02 06:30 | PC.NURSE ---
SHIFT SUMMARY PT REMAINS INTUBATED. PT LUNGS REMAIN COARSE, DIMINISHED. PT HAS HAD ADEQUATE URINE OUTPUT. PT REMAINS ON 6 MCG LEVOPHED, 25MCG FENTANYL, AND 10MCG PROPOFOL. PT AWAKES AND WILL ANSWER QUESTIONS WITH A NOD OF THE HEAD AND THEN WILL GO BACK INTO RESTING WITH EYES CLOSED. PT CENTRAL LINE REMAINS PATENT.
[2019-06-02] MEDS: budesonide 0.5 mg/2 mL Neb 0.25 MG INHALATION ×2 (08:12→21:37)
--- NOTE | 2019-06-02 08:12 | PM.PN ---
Subjective Subjective: Interval history: The patient is currently ventilated, however alert. She expresses that she has some irritation from the tube, otherwise denies other pains. The patient had to be intubated overnight secondary to increasing oxygen demands that were not able to be met by BiPAP. Vitals/I&O/Wt Last Vital Signs Temp 98.1 F 06/02/19 06:00 Pulse 93 06/02/19 06:00 Resp 13 06/02/19 07:49 BP 96/60 06/02/19 06:00 Pulse Ox 97 06/02/19 06:00 06/01/19 06/02/19 06/02/19 22:59 06:59 14:59 Intake Total 750 / 1090 383.762 / 1473.762 Output Total 950 / 950 950 / 1900 Balance -200 / 140 -566.238 / -426.238 Weight last 48 hrs Weight 84.822 kg Weight 87.498 kg Physical Exam Narrative: EXAM NARRATIVE: General: Alert, responsive to commands and questions Pupils: Reactive to light and accommodation Cardiac: Regular rate and rhythm without murmurs Lungs: Clear to auscultation bilaterally while ventilated. No significant wheezes, crackles or rhonchi Abdomen: Soft, nontender. Extremities: No edema Urinary Catheter Management^: [place]: Cath Placed During This Visit: no Data : 06/02/19 03:45 06/02/19 03:45 Micro: Microbiology 05/29/19 13:42 Blood Culture - Preliminary Blood Escherichia coli 05/31/19 21:00 Legionella Urinary Antigen - Final Urine,Voided Bacterial Antigens - Final A&P Additional A&P Information 1. Sepsis secondary to E. coli bacteremia -the patient has E. coli sepsis secondary to a UTI. She has positive blood cultures and is currently on Zosyn and levofloxacin. Her white blood cell count has increased and we will follow this to make sure it is starting to improve. This is likely worsening the below. The patient is currently on pressure support secondary to this as well. We will look to wean her off of it when possible. 2. Respiratory failure -the patient had respiratory failure overnight and had to be intubated by the hospitalist team. The patient is currently ventilated and I will ask Dr. Mccollum to evaluate her for respiratory management. I appreciate his consultation with this patient. 3. Acute renal insufficiency -this is likely secondary to the underlying infection and episodes of hypotension. We will continue to treat her underlying infection and pressure issues and watch to see if this improves with that. If not, we will need to get an ultrasound of the kidneys. 4. COPD -this is likely 1 of the primary reasons for needing intubation. We will of course need to take precautions to not weaken her diaphragm with intubation. Continue with respiratory therapy to assess and treat. 5. CHF -the patient seems to be euvolemic at this time. We will follow for signs of problems. 6. Prophylaxis -Lovenox Attestations Medical Necessity Statement*: The patient continues need inpatient care as she is currently ventilated in the ICU and being treated for septic shock as above. Coding Level of Care Code Acute Side Seam Envelope Machine Operator for Hanh Medeiros Time Spent (min) 30
[2019-06-02] MEDS: nicotine 21 mg Patch 1 PATCH TRANSDERMA (08:33)
[2019-06-02] MEDS: enoxaparin 100 mg/mL Syringe 90 MG SUBCUT (08:33)
[2019-06-02] MEDS: levothyroxine 125 mcg Tablet PO (08:34)
[2019-06-02] MEDS: piperacillin-tazobactam 3.375 GM in sodium chloride 0.9% (plus) 50 ML IV ×2 (08:34→17:17)
--- NOTE | 2019-06-02 19:20 | PC.NURSE ---
DR LOPEZ AT BEDSIDE, GAVE VERBAL ORDERS TO WEAN OFF FENTANYL AND PROPOFOL AND KEEP PT ON PRECEDEX TO BE READY FOR EXTUBATION.
--- NOTE | 2019-06-02 19:48 | PM.CONSULT ---
Providers/Reason For Consult Consulting Physican/Specialty*: Pulmonary and critical care medicine Reason for Consult*: Respiratory failure in the setting of septic shock from UTI Attending Physician: Ash Arevalo MD History of Present Illness History of Present Illness Leslie Urena is a 73 year old female who presented to the hospital with severe sepsis secondary to E. coli urinary tract infection and bacteremia. During the course of the hospitalization, the patient went into respiratory failure and ended up getting intubated last night. Review of the patient's chart reveals the patient is an active smoker. She has a history of COPD and not on home oxygen. Patient also has psychiatric history and is on divalproex. The patient was initially admitted to the hospital with severe sepsis secondary to urinary tract infection. Her urine culture and blood culture subsequently came back positive for E. coli. Last night, the patient became progressively tachypneic and was eventually intubated after failing noninvasive positive pressure ventilation. There was also a concern for pulmonary embolus and the patient was receiving full dose anticoagulation with Lovenox. An echocardiogram was obtained during the hospital admission which showed normal ejection fraction however the echo windows are poor. The patient was undergoing diuresis for pulmonary vascular congestion. The patient was seen and examined today. The patient is intubated and sedated with propofol and fentanyl. However the patient is easily arousable and she is able to follow simple commands and answer questions by nodding her head. The patient is mechanically ventilated with volume control mode. The patient was able to tolerate PSV however she was not initiating adequate number of breaths. I had performed a bedside ultrasound which did not reveal a significant number of B-lines. The patient has elevated right hemidiaphragm. There is no significant pleural effusion. The IVC does not appear to be significantly dilated. Review of Systems Narrative: The review of system is limited because of the patient's clinical condition. She is intubated and sedated. The patient was easily arousable and she denied any significant chest pain, shortness of breath. She did complain of some discomfort because of the ET tube. Meds/Allergies Home Medications and Allergies Home Medications Medication Instructions Recorded Confirmed Type albuterol sulfate [ProAir HFA] 2 puff INHALATION 05/29/19 History atenolol 25 mg PO DAILY 05/29/19 05/29/19 History divalproex 1,000 mg PO BEDTIME 05/29/19 05/30/19 History fluticasone propion-salmeterol 2 inh INHALATION 05/29/19 History [Advair Diskus] levothyroxine 125 mcg PO DAILY 05/29/19 05/29/19 History olanzapine 5 mg PO BEDTIME 05/29/19 05/30/19 History paroxetine HCl 20 mg PO BEDTIME 05/29/19 05/31/19 History loperamide 2 mg PO PRN PRN MDD 8 mg 05/30/19 05/31/19 History Allergies Allergy/AdvReac Type Severity Reaction Status Date / Time No Known Allergies Allergy Verified 05/29/19 13:31 Current Medications Current Medications Generic Name Dose Route Start Last Admin Trade Name Freq PRN Reason Stop Dose Admin Acetaminophen 650 mg 05/29/19 18:29 06/01/19 21:05 Tylenol PO 650 mg Q6H PRN Administration Mild/Mod Pain Or Temp >/= 101 Albuterol/Ipratropium 3 ml 05/29/19 21:00 06/02/19 14:01 Duoneb INHALATION 3 ml Q6H.RESPIRATORY SWAPNA Administration Budesonide 0.25 mg 05/29/19 20:00 06/02/19 08:12 Pulmicort INHALATION 0.25 mg BID.RESPIRATORY SWAPNA Administration Bumetanide 1 mg 05/30/19 02:30 06/02/19 17:16 Bumex IV 1 mg Q12H SWAPNA Administration Divalproex Sodium 1,000 mg 05/30/19 21:00 06/02/19 19:25 Depakote Er PO Not Given BEDTIME SWAPNA Piperacillin Sod/Tazobactam 50 mls @ 12.5 mls/hr 06/01/19 20:00 06/02/19 17:17 Sod 3.375 gm/ Sodium Chloride IV 12.5 mls/hr Q8H SWAPNA Administration Protocol Fentanyl 1,000 mcg/ Sodium 100 mls @ 0 mls/hr 06/01/19 23:00 06/02/19 03:45 Chloride IV 25 mcg/hr .Q0M SWAPNA 2.5 mls/hr Titration Protocol Per Protocol Norepinephrine Bitartrate 4 mg 254 mls @ 0 mls/hr 06/01/19 23:15 06/02/19 13:58 / Dextrose IV 4 mcg/min .Q0M SWAPNA 15.2 mls/hr Administration Protocol Per Protocol Levothyroxine Sodium 125 mcg 05/30/19 09:00 06/02/19 08:34 Synthroid PO 125 mcg DAILY SWAPNA Administration Nicotine 1 patch 05/29/19 18:29 06/02/19 08:33 Nicoderm 21 Mg Patch TRANSDERMA 1 patch DAILY SWAPNA Administration Olanzapine 2.5 mg 05/30/19 21:00 06/01/19 21:06 Zyprexa PO 2.5 mg BEDTIME SWAPNA Administration Paroxetine HCl 10 mg 05/31/19 21:00 06/01/19 21:06 Paxil PO 10 mg BEDTIME SWAPNA Administration PFSH Acute PFSH: Statuses (acute, chronic, etc) shown below reflect problem list status as previously entered and may not be historically accurate Medical History COPD (chronic obstructive pulmonary disease) (Chronic) Depression (Chronic) HTN (hypertension) (Chronic) Hyperammonemia (Chronic) Hypothyroidism (Chronic) Schizophrenia (Chronic) Social History Smoking and tobacco status: current every day smoker cigarettes Packs smoked per day: 1 Alcohol intake: current Alcohol intake frequency: holidays/special occasions only Substance/Drug Use: never Household members: spouse Marital status: Vitals/I&O/Wt Last Vital Signs Temp 98.4 F 06/02/19 11:00 Pulse 104 H 06/02/19 18:00 Resp 14 06/02/19 17:23 BP 98/71 06/02/19 18:00 Pulse Ox 94 06/02/19 18:00 06/02/19 06/02/19 06/02/19 06:59 14:59 22:59 Intake Total 383.762 / 1473.762 . / . Output Total 950 / 1900 250 / 250 Balance -566.238 / -426.238 . -250 / -38.76 Weight last 48 hrs Weight 187 lb Weight 192 lb 14.4 oz Physical Exam Narrative: EXAM NARRATIVE: General: Patient is easily arousable, intubated and sedated Neck: No JVD, no cervical or supraclavicular lymphadenopathy. Respiratory: Auscultation: Reduced breath sound bilaterally, occasional crackles of the right lower lung zone laterally, no wheezing or rhonchi Cardiovascular: Regular rate and rhythm, S1-S2 present, distant heart sound, no murmur, no right ventricular heave, no peripheral edema. Abdomen: Soft, nondistended, positive bowel sound. No palpable organomegaly. Musculoskeletal: No obvious joint deformity Skin: No rash, no evidence of erythema nodosum or multiforme. Neuro: Patient is arousable and follows simple command Urinary Catheter Management^: [place]: Cath Placed During This Visit: no Data Micro: Micro: Microbiology 06/02/19 09:59 Gram Stain - Final Sputum - Endotrac heal Tube Aspirate 05/29/19 13:42 Blood Culture - Pr eliminary Blood Escherichia col i Other Data: Other data: I have reviewed the patient's laboratory, microbiology and radiology data. She had undergone a CT scan of her chest which revealed right lower lobe consolidation possibly consistent with an aspiration event in the setting of altered mental status. There is evidence of emphysema and interestingly the patient might have a component of tracheobronchomalacia as well. The perfusion study was negative for any pulmonary embolism. As I have described in the HPI, the bedside ultrasound did not reveal evidence of significantly elevated right-sided pressure. A&P Assessment and plan (1) Respiratory failure with hypoxia: The patient is currently intubated and mechanically ventilated for acute hypoxic respiratory failure in the setting of right lower lobe aspiration pneumonia as well as dynamic hyperinflation secondary to tachypnea yesterday night. I believe, the patient had episode of tachypnea that contributed to her respiratory failure. I am not certain why she would have tachypnea however the patient does have history of schizophrenia and was delirious secondary to the urinary tract infection with E. coli and bacteremia. The tachypnea would result in dynamic hyperinflation of her lung with subsequent deterioration of her respiratory status even more. Currently the patient has improved significantly regarding her respiratory status. She is only on 30% FiO2 maintaining her saturation above 90%. Her endotracheal aspirate is consistent with possible aspiration. It is going to be of paramount importance to keep the patient comfortable and calm when I attempt to extubate. I am going to start the patient on a Precedex drip and will discontinue the propofol. Titrate down the fentanyl as much as possible. I am hoping to extubate her tomorrow morning on Precedex on noninvasive positive pressure ventilation. The positive pressure ventilation would be helpful given the presence of possible tracheobronchomalacia on the CT scan. There is no evidence of a pulmonary embolus on the perfusion scan. There is no evidence of significantly elevated right-sided pressures on the bedside echocardiogram. I am going to discontinue the therapeutic dose of Lovenox and continue the DVT prophylaxis dose. Status: Acute Code(s): J96.91 - Respiratory failure, unspecified with hypoxia (2) Acute kidney injury: The cause of the acute kidney injury is multifocal. The sepsis, possible fluid overload are likely responsible. The patient had been diuresed well. There is no significant evidence of RV failure. I will hold the diuresis for the time being. Status: Acute Code(s): N17.9 - Acute kidney failure, unspecified (3) Bacteremia due to Escherichia coli: The blood culture and urine culture are grew E. coli. The E. coli sensitive to Zosyn and Levaquin. I will repeat the blood culture. The patient will require 2 weeks of antibiotic therapy starting from the first negative blood culture. Status: Acute Code(s): R78.81 - Bacteremia (4) Acute UTI: See above. Status: Acute Code(s): N39.0 - Urinary tract infection, site not specified (5) Septic shock: The patient is requiring small dose of levophed. This is possibly secondary to the septic shock from E. coli bacteremia as well as vaso-plegia from propofol and possibly fentanyl. We will continue to support her blood pressure with the Levophed for the time being. Status: Acute Code(s): A41.9 - Sepsis, unspecified organism; R65.21 - Severe sepsis with septic shock (6) CHF (congestive heart failure): The patient is currently well diuresed. I am holding the Bumex for the time being. We will start diuresis again once the contraction alkalosis resolves. Status: Acute Qualifiers: Heart failure chronicity: acute Heart failure type: unspecified Qualified Code(s): I50.9 - Heart failure, unspecified Code(s): I50.9 - Heart failure, unspecified (7) COPD (chronic obstructive pulmonary disease): I do not have any pulmonary function test. However the patient continues to be a smoker and I think she has significant airway obstruction. There is no evidence of COPD exacerbation. We will continue with DuoNeb and Pulmicort nebulization for the time being. Status: Chronic Code(s): J44.9 - Chronic obstructive pulmonary disease, unspecified Coding Level of Care Code Acute Crepe Sole Scourer for [facility] Diagnoses Respiratory failure with hypoxia J96.91 Acute kidney injury N17.9 Bacteremia due to Escherichia coli R78.81 Acute UTI N39.0 Septic shock A41.9; R65.21 CHF (congestive heart failure) I50.9 Heart failure chronicity: acute Heart failure type: unspecified COPD (chronic obstructive pulmonary disease) J44.9 Time Spent (min) 65
[2019-06-02] MEDS: OLANZapine 5 mg TABLET 2.5 MG PO (21:01)
[2019-06-02] MEDS: PARoxetine 20 mg Tablet 10 MG PO (21:01)
[2019-06-03] VITALS (43 sets, daily range): BP systolic 91–136; BP diastolic 55–77; PULSE 79–104; RESP 14–40; TEMP 37.7–38.3; O2SAT 89–96
[2019-06-03] MEDS: piperacillin-tazobactam 3.375 GM in sodium chloride 0.9% (plus) 50 ML IV ×3 (00:44→17:11)
[2019-06-03] MEDS: ipratropium-albuterol 3 mL Neb INHALATION ×4 (02:56→20:21)
--- NOTE | 2019-06-03 03:39 | PC.NURSE ---
Addendum entered by Maame Aguayo RN 06/03/19 03:44: I witnessed the fentanyl waste, Ángel Aguayo RN Original Note: WASTED 37.833 MLS OF FENTANYL, WITNESSED WITH HEIKE STONE.
[2019-06-03 05:19] LABS: ABG PCO2 51.3 mmHg (35-45); ABG PH Result 7.48 (7.35-7.45); Arterial Blood Gas Hematocrit 36.8 % (37-47); Base Excess ABG 12.7 mmol/L (-2.0-2.0); Blood Gas Sample Site Brachial, right; Blood Gas Sample Type Arterial; Blood Gas Tidal Volume 0.4; HCO3 ABG 38.1 mmol/L (22-26); Oxygen Device VENT; PO2 ABG 81.1 mmHg (80.0-100.0)
--- NOTE | 2019-06-03 06:11 | PC.NURSE ---
SHIFT SUMMARY PT HAS REMAINED INTUBATED, PT IS CURRENTLY ON PRECEDEX ONLY AT 0.2MCG. PT LUNGS REMAIN COARSE, PULSES DIMINISHED. PT HAS RESTED WELL THROUGHOUT THE NIGHT, AWAKENS TO LIGHT TOUCH AND WILL NOD YES AND NO TO QUESTIONS ASKED. PT HAS HAD ADEQUATE URINE OUTPUT. PT CENTRAL LINE REMAINS PATENT.
--- NOTE | 2019-06-03 06:44 | XR_ITS ---
WS: [id number] CHEST XRAY TECHNIQUE: Portable chest. CLINICAL INFORMATION: respiratory failure COMPARISON: None. FINDINGS: Endotracheal tube with tip above the frank measuring 17 mm. Enteric tube with tip below the diaphrag m. Heart: Normal cardiac silhouette. Aortic calcification. Lungs: Chronic emphysematous changes. Shallow inspiration. Tiny bilateral pleural effusions. Slight a telectasis left lung base. Bones: Normal visualized bony structures. XR/XR chest 1V portable [id number] IMPRESSION: 1. Endotracheal tube with tip above the frank. Enteric tube with tip below th e diaphragm. 2. Tiny left greater than right pleural effusions. Slight atelectasis left dona g base.
[2019-06-03] MEDS: budesonide 0.5 mg/2 mL Neb 0.25 MG INHALATION ×2 (08:16→20:20)
[2019-06-03] MEDS: enoxaparin 40 mg/0.4 mL Syringe SUBCUT (08:30)
[2019-06-03] MEDS: nicotine 21 mg Patch 1 PATCH TRANSDERMA (09:28)
[2019-06-03] MEDS: levothyroxine 125 mcg Tablet PO (09:28)
[2019-06-03 09:45] LABS: ABG PCO2 39.1 mmHg (35-45); Arterial Blood Gas Hematocrit 38.6 % (37-47); Base Excess ABG 12.5 mmol/L (-2.0-2.0); Blood Gas Allen Test Pos; Blood Gas Sample Site Radial, left; Blood Gas Sample Type Arterial; HCO3 ABG 35.6 mmol/L (22-26); Oxygen Device VENT; PO2 ABG 73.9 mmHg (80.0-100.0)
--- NOTE | 2019-06-03 10:41 | PC.SOCIAL ---
IMM Update Pg 2 of IMM given and explained to patient. Signed, dated, and timed and placed in chart. Copy provided to patient.
[2019-06-03 12:41] LABS: ABG PH Result 7.57 (7.35-7.45)
--- NOTE | 2019-06-03 15:09 | PM.PN ---
Vitals/I&O/Wt Last Vital Signs Temp 99.9 F H 06/03/19 13:00 Pulse 90 06/03/19 14:03 Resp 21 H 06/03/19 14:00 BP 129/72 06/03/19 13:00 Pulse Ox 92 06/03/19 14:00 06/03/19 06/03/19 06/03/19 06:59 14:59 22:59 Intake Total 264.785 / 633.805 254 / 254 Output Total 375 / 625 Balance -110.215 / 8.805 254 / 254 Weight last 48 hrs Weight 83.416 kg Weight 84.822 kg Physical Exam Urinary Catheter Management^: [place]: Cath Placed During This Visit: no Data : 06/02/19 03:45 06/02/19 03:45 Micro: Microbiology 06/02/19 09:59 Gram Stain - Final Sputum - Endotracheal Tube Aspirate Sputum Culture - Preliminary 06/01/19 23:19 Sputum Culture - Preliminary Sputum - Endotracheal Tube Aspirate 06/02/19 19:53 Blood Culture - Preliminary Blood SPECIMEN COLLECTED 06/02/19 19:56 Blood Culture - Preliminary Blood SPECIMEN COLLECTED Coding Level of Care Code Acute 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
--- NOTE | 2019-06-03 15:13 | PC.NURSE ---
Dr. Arevalo on unit to see patient. Dr. Arevalo requested restraints be loosened at this time, as patient stated it was bothering her. Restraints loosened at this time, and will monitor closely.
--- NOTE | 2019-06-03 16:13 | PM.PN ---
Subjective Subjective: Interval history: The patient is currently alert while on the ventilator and responsive to questions. The patient denies any chest pains. She admits to occasional pain in the left mid abdomen. No other concerns appreciated with interacting with the patient. Vitals/I&O/Wt Last Vital Signs Temp 100.4 F H 06/03/19 15:00 Pulse 104 H 06/03/19 15:00 Resp 14 06/03/19 15:21 BP 119/77 06/03/19 15:00 Pulse Ox 93 06/03/19 15:00 06/03/19 06/03/19 06/03/19 06:59 14:59 22:59 Intake Total 264.785 / 633.805 254 / 254 Output Total 375 / 625 Balance -110.215 / 8.805 254 / 254 Weight last 48 hrs Weight 83.416 kg Weight 84.822 kg Physical Exam Narrative: EXAM NARRATIVE: General: Alert and interactive with head movements Cardiac: Mild tachycardia with regular rhythm Lungs: No significant wheezes at this time, good breath sounds bilaterally Abdomen: Soft, occasional tenderness in the left mid abdomen. No rebound tenderness. Extremities: Trace edema in the bilateral lower extremities Urinary Catheter Management^: [place]: Cath Placed During This Visit: no Data : 06/02/19 03:45 06/02/19 03:45 Micro: Microbiology 06/02/19 09:59 Gram Stain - Final Sputum - Endotracheal Tube Aspirate Sputum Culture - Preliminary 06/01/19 23:19 Sputum Culture - Preliminary Sputum - Endotracheal Tube Aspirate 06/02/19 19:53 Blood Culture - Preliminary Blood SPECIMEN COLLECTED 06/02/19 19:56 Blood Culture - Preliminary Blood SPECIMEN COLLECTED A&P Additional A&P Information 1. Sepsis secondary to E. coli bacteremia -the patient has E. coli sepsis secondary to a UTI. She has positive blood cultures and is currently on Zosyn and levofloxacin. Repeat blood cultures were drawn yesterday. Labs are currently pending for today. The patient is currently on pressure support secondary to this as well. We will look to wean her off of it when possible. Currently she is on 8 of Levophed. 2. Respiratory failure -the patient is still on the ventilator. I appreciate Dr. Mccollum's recommendations and treatment for this patient. They are working towards extubation when possible. 3. Acute renal insufficiency -this is likely secondary to the underlying infection and episodes of hypotension. We will continue to treat her underlying infection and pressure issues and watch to see if this improves with that. Labs for today are currently pending. 4. COPD -this is likely 1 of the primary reasons for needing intubation. We will of course need to take precautions to not weaken her diaphragm with intubation. Continue with respiratory therapy to assess and treat. 5. CHF -the patient seems to be euvolemic at this time. We will follow for signs of problems. 6. Prophylaxis -Lovenox Attestations Medical Necessity Statement*: The patient continues to need inpatient care for treatment of the above issues. Her stay will cross greater than 2 more midnights. Critical Care Time: Critical Care Time (min): 30 Coding Level of Care Code Acute Community Engagement Representative for [facility]
--- NOTE | 2019-06-03 16:56 | P.PN_ITS ---
Subjective Subjective: Interval history: The patient was seen and examined this morning. The patient was off of sedation. She was able to follow commands and answer simple question by nodding her head. On PSV of 10/5, the patient had an adequate tidal volume however when the PSV was reduced to 5/5 her tidal volumes dropped to low 100s. I decided not to extubate the patient. Overall the pat ient remained hemodynamically stable requiring small amount of pressor support. Medications: Reviewed: Yes Vitals/I&O/Wt Last Vital Signs Temp 100.4 F H 06/03/19 15:00 Pulse 104 H 06/03/19 15:00 Resp 14 06/03/19 15:21 BP 119/77 06/03/19 15:00 Pulse Ox 93 06/03/19 15:00 06/03/19 06/03/19 06/03/19 06:59 14:59 22:59 Intake Total 264.785 / 633.805 254 / 254 Output Total 375 / 625 Balance -110.215 / 8.805 254 / 254 Weight last 48 hrs Weight 183 lb 14.4 oz Weight 187 lb Physical Exam Narrative: EXAM NARRATIVE: General: Patient is easily arousable, intubated Neck: No JVD, no cervical or supraclavicular lymphadenopathy. Respiratory: Auscultation: Reduced breath sound bilaterally, occasional crackles of the right lower lung zone laterally, no wheezing or rhonchi Cardiovascular: Regular rate and rhythm, S1-S2 present, distant heart sound, no murmur, no right ventricular heave, no peripheral edema. Abdomen: Soft, nondistended, positive bowel sound. Skin: No rash Neuro: Patient is arousable and follows simple command Urinary Catheter Management^: [place]: Cath Placed During This Visit: no Data : 06/02/19 03:45 06/02/19 03:45 Micro: Microbiology 06/02/19 09:59 Gram Stain - Final Sputum - Endotracheal Tube Aspirate Sputum Culture - Preliminary 06/01/19 23:19 Sputum Culture - Preliminary Sputum - Endotracheal Tube Aspirate 06/02/19 19:53 Blood Culture - Preliminary Blood SPECIMEN COLLECTED 06/02/19 19:56 Blood Culture - Preliminary Blood SPECIMEN COLLECTED CXR: My impression: Chest x-ray obtained this morning did not reveal any significant change from before. There is no new developing infiltrate. There is no evidence of pulmonary vascular congestion. There is small atelectasis in the left lower lobe. A&P Assessment and plan (1) Septic shock: Septic shock secondary to E. coli bacteremia from urinary tract infection. Repeat blood culture from yesterday is negative so far. The patient is on Zosyn. She is requiring very small amount of norepinephrine. We will titrate down the norepinephrine. The map goal is greater than or equal to 65 mmHg. Status: Acute Code(s): A41.9 - Sepsis, unspecified organism; R65.21 - Severe sepsis with septic shock (2) Bacteremia due to Escherichia coli: The patient will require 2 weeks of IV antibiotic therapy following the first negative blood culture. Status: Acute Code(s): R78.81 - Bacteremia (3) Respiratory failure with hypoxia: This morning, the patient was unable to maintain adequate tidal volume with pressure support of 5/5. Her rapid shallow breathing index was more than 105. We will attempt to extubate her tomorrow again. We will continue with the Zosyn for the time being. The patient is on DuoNeb and Pulmicort nebulizer. Status: Acute Code(s): J96.91 - Respiratory failure, unspecified with hypoxia Attestations Medical Necessity Statement*: Will defer to the primary team Coding Level of Care Code Acute Computer Peripheral Equipment Operator for [facility] Diagnoses Septic shock A41.9; R65.21 Bacteremia due to Escherichia coli R78.81 Respiratory failure with hypoxia J96.91 Time Spent (min) 43
[2019-06-03 17:22] LABS: Basophils # 0.1 10^3/uL (0.0-0.1); Basophils % 0.3 %; Eosinophils # 0.2 10^3/uL (0.0-0.8); Eosinophils % 1.4 %; Hematocrit 36.4 % (37.0-47.0); Hemoglobin 11.5 g/dL (11.5-15.3); Lymphocytes # 2.1 10^3/uL (0.8-4.8); Lymphocytes % 13.2 %; Mean Corpuscular HGB Conc 31.6 g/dL (30.0-36.0); Mean Corpuscular Hemoglobin 28.7 pg (28.0-34.0); Mean Corpuscular Volume 90.8 fL (81-99); Mean Platelet Volume 10.7 fL (7.4-10.4); Monocytes # 1.2 10^3/uL (0.2-0.9); Monocytes % 7.3 %; Neutrophils # 11.3 10^3/uL (1.8-7.7); Neutrophils % 70.9 %; Nucleated Red Blood Cells % 0.1 %; Platelet Count 342 10^3/cmm (130-400); Red Blood Count 4.01 10^6/uL (4.1-5.3); Red Cell Distribution Width 16.5 % (12.1-15.1)
[2019-06-03 17:53] LABS: Alanine Aminotransferase 13 U/L (0-33); Albumin Level 2.2 g/dL (3.5-5.2); Alkaline Phosphatase 81 IU/L (35-105); Anion Gap 15.5 (5-19); Aspartate Amino Transferase 19 U/L (0-32); Blood Urea Nitrogen 48 mg/dL (8-23); Calcium 9.5 mg/Dl (8.8-10.2); Carbon Dioxide 32 mmol/L (22-29); Chloride 84 mmol/L (98-107); Globulin 4.5 g/dL (1.3-4.6); Glucose 148 mg/dL (74-106); Magnesium 2.5 mg/dL (1.7-2.3); NT Pro B Type Natriuretic Pept 975 pg/mL (0-125); Phosphorus 2.9 mg/dL (2.5-4.5); Potassium 3.5 mmol/L (3.5-5.1); Sodium 128 mmol/L (136-145); Total Bilirubin 0.4 mg/dL (0.15-1.2); Total Protein 6.7 g/dL (6.6-8.7)
[2019-06-03 18:02] LABS: Slide Review Slide Review Perform
--- NOTE | 2019-06-03 19:02 | PC.NURSE ---
rcvd bedside report at this time. size 8 et tube 30/400/14/5 cmv . right cvl c precedex 0.2 mg/hr . levophed @4mcg/hr bp 115/71 . pt awake on vent but calm. responds to simple commands. soft wrist restraints in place but loose for comfort. sorto to csd c clear yellow urine . og to lis . pt denies pain . vss per cm. assessment per flowsheet. sudeep miranda.
[2019-06-03] MEDS: dextrose 5%-sod chloride 0.9% 1,000 ML 75 ML IV (19:38)
[2019-06-03] MEDS: PARoxetine 20 mg Tablet 10 MG PO (22:59)
[2019-06-03] MEDS: OLANZapine 5 mg TABLET 2.5 MG PO (22:59)
[2019-06-04] VITALS (33 sets, daily range): BP systolic 93–155; BP diastolic 50–77; PULSE 72–93; RESP 14–48; TEMP 36.8; O2SAT 88–96; BMI 27.9
[2019-06-04] MEDS: ipratropium-albuterol 3 mL Neb INHALATION ×4 (02:09→20:01)
[2019-06-04] MEDS: piperacillin-tazobactam 3.375 GM in sodium chloride 0.9% (plus) 50 ML IV ×3 (02:30→16:33)
[2019-06-04 03:53] LABS: Basophils # 0.1 10^3/uL (0.0-0.1); Basophils % 0.4 %; Eosinophils # 0.2 10^3/uL (0.0-0.8); Eosinophils % 1.4 %; Hematocrit 31.1 % (37.0-47.0); Hemoglobin 9.7 g/dL (11.5-15.3); Lymphocytes # 2.4 10^3/uL (0.8-4.8); Lymphocytes % 20.1 %; Mean Corpuscular HGB Conc 31.2 g/dL (30.0-36.0); Mean Corpuscular Hemoglobin 28.3 pg (28.0-34.0); Mean Corpuscular Volume 90.7 fL (81-99); Mean Platelet Volume 10.4 fL (7.4-10.4); Monocytes % 8.4 %; Neutrophils # 7.3 10^3/uL (1.8-7.7); Neutrophils % 60.4 %; Nucleated Red Blood Cells % 0 %; Platelet Count 281 10^3/cmm (130-400); Red Blood Count 3.43 10^6/uL (4.1-5.3); Red Cell Distribution Width 16.9 % (12.1-15.1); White Blood Count 12.1 10^3/uL (4.0-10.0)
[2019-06-04 04:08] LABS: Alanine Aminotransferase 14 U/L (0-33); Albumin Level 2.2 g/dL (3.5-5.2); Alkaline Phosphatase 67 IU/L (35-105); Anion Gap 14.7 (5-19); Aspartate Amino Transferase 23 U/L (0-32); Blood Urea Nitrogen 48 mg/dL (8-23); Carbon Dioxide 34 mmol/L (22-29); Chloride 90 mmol/L (98-107); Globulin 3.9 g/dL (1.3-4.6); Glucose 137 mg/dL (74-106); Magnesium 2.5 mg/dL (1.7-2.3); Phosphorus 2.8 mg/dL (2.5-4.5); Potassium 3.7 mmol/L (3.5-5.1); Sodium 135 mmol/L (136-145); Total Bilirubin 0.3 mg/dL (0.15-1.2); Total Protein 6.1 g/dL (6.6-8.7)
[2019-06-04 04:45] LABS: Slide Review Slide Review Perform
[2019-06-04 04:48] LABS: Absolute Eosinophils 0.2 10^3/cmm (0.0-0.7); Absolute Segmented Neutrophil 7.5 10/cmm (1.6-7.1); Band Neutrophils Absolute 0.2 10^3/cmm (0.0-1.2); Eosinophils 2 %; Lymphocytes 22 %; Monocytes Absolute 0.5 10^3/cmm (0.1-0.6); Segmented Neutrophils 62 %; Total Cells Counted 100 (0-100)
[2019-06-04 04:49] LABS: Platelet Estimate Normal (Normal)
[2019-06-04 05:02] LABS: ABG PCO2 48.6 mmHg (35-45); ABG PH Result 7.51 (7.35-7.45); HCO3 ABG 38.3 mmol/L (22-26)
[2019-06-04 05:03] LABS: Base Excess ABG 13.5 mmol/L (-2.0-2.0); Oxygen Device VENT
[2019-06-04 05:04] LABS: Arterial Blood Gas Hematocrit 34.7 % (37-47); Blood Gas Drawn By BISJE; Blood Gas Vent Mode CMV
[2019-06-04 06:20] LABS: Blood Gas Sample Site Brachial, right; Blood Gas Sample Type Arterial; Blood Gas Tidal Volume 0.4
--- NOTE | 2019-06-04 07:36 | PM.PN ---
Subjective Subjective: Interval history: The patient continues to be alert and responsive to questioning. She denies any pains in her chest. The tube seems to be bothering her. The patient has some mild pain in the left lower quadrant to palpation. Vitals/I&O/Wt Last Vital Signs Temp 100.4 F H 06/03/19 22:00 Pulse 74 06/04/19 05:00 Resp 14 06/04/19 06:00 BP 113/64 06/04/19 05:00 Pulse Ox 92 06/04/19 05:00 06/03/19 06/04/19 06/04/19 22:59 06:59 14:59 Intake Total 384 / 688 60 / 748 Output Total 450 / 450 450 / 900 Balance -66 / 238 -390 / -152 Weight last 48 hrs Weight 83.416 kg Weight 83.416 kg Physical Exam Narrative: EXAM NARRATIVE: General: Alert and responsive to questioning Cardiac: Regular rate and rhythm without murmurs Lungs: Occasional rhonchi, patient is intubated and breathing comfortably. Abdomen: Soft, mild tenderness in the left lower quadrant. No rebound tenderness. Extremities: Trace edema in the bilateral lower extremities with erythema and warmth in the bilateral lower extremities below the knee. Urinary Catheter Management^: [place]: Cath Placed During This Visit: no Data : 06/04/19 03:00 06/04/19 03:00 Micro: Microbiology 06/02/19 19:53 Blood Culture - Preliminary Blood NEGATIVE TO DATE 06/02/19 19:56 Blood Culture - Preliminary Blood NEGATIVE TO DATE 06/02/19 09:59 Gram Stain - Final Sputum - Endotracheal Tube Aspirate Sputum Culture - Preliminary 06/01/19 23:19 Sputum Culture - Preliminary Sputum - Endotracheal Tube Aspirate A&P Additional A&P Information 1. Sepsis secondary to E. coli bacteremia -the patient has E. coli sepsis secondary to a UTI. She has positive blood cultures and is currently on Zosyn and levofloxacin. Repeat blood cultures were drawn on 06/02/2019. The patient is currently on minimal pressure support secondary to this as well. We will look to wean her off of it when possible. Currently she is on 0.5 of Levophed. 2. Respiratory failure -the patient is still on the ventilator. I appreciate Dr. Mccollum's recommendations and treatment for this patient. They are working towards extubation when possible. 3. Acute renal insufficiency -this is likely secondary to the underlying infection and episodes of hypotension. We will continue to treat her underlying infection and pressure issues and watch to see if this improves with that. I have added back IV fluids at 75 mL/h since she has no other intake currently. If she is not extubated today, we will need to add feedings via NG tube. 4. COPD -this is likely 1 of the primary reasons for needing intubation. We will of course need to take precautions to not weaken her diaphragm with intubation. Continue with respiratory therapy to assess and treat. 5. CHF -the patient seems to be euvolemic at this time. We will follow for signs of problems. I's and O's are stable. 6. Erythema in the bilateral lower extremities -I am concerned that the patient may have cellulitis in the bilateral lower extremities based on exam today. This could explain her ongoing fevers. I will add vancomycin to cover for MRSA. 7. Prophylaxis -Lovenox Attestations Medical Necessity Statement*: The patient continues to need inpatient care in the ICU secondary to the above issues. Critical Care Time: Critical Care Time (min): 20 Coding Level of Care Code Acute Supervisor Long [employer]s for [facility] Medei[facility]
[2019-06-04] MEDS: enoxaparin 40 mg/0.4 mL Syringe SUBCUT (08:00)
[2019-06-04] MEDS: dextrose 5%-sod chloride 0.9% 1,000 ML 75 ML IV (08:00)
[2019-06-04] MEDS: budesonide 0.5 mg/2 mL Neb 0.25 MG INHALATION ×2 (08:08→20:01)
--- NOTE | 2019-06-04 09:38 | PC.CHAP ---
Pastoral Care Encounter/Spiritual Assessment Type of Contact [] Declined dust mill operator visit [] Patient/Family/Request visit [] Outpatient visit [] Follow-up visit [] Physician referral [] Code/Alert [] Routine visit [] Staff referral [] Actively dying [] Patient sleeping [] Family support [] [] Out of room [] Palliative care [] [] Receiving care in room [] Pre-surgical visit [] Trauma [x] Long length of stay [x] ICU visit [] Other: Relational/Emotional Strength [] Patient feels connected with others/family/visitors/staff [] Distress [] Loneliness/isolation [] Abandonment Spirituality of Patient [] Person of Caridad [] Attends Cheondoism of their Caridad [x] Believes in Prayer [] Reads Bible or Evangelical materials [] There are Spiritual issues to be addressed Steel Unloader Interventions [x] Prayer [] Active listening [] Non-anxious presence [] Spiritual/emotional support [] Crisis/trauma care [] Spiritual counseling [] Bereavement support [] Provided bereavement packet [] Provided Bible/devotional materials [] Provided toy/stuffed animal, coloring book to patient or family member [x] Completed spiritual assessment [] Provided Communion [] Anointing/[facility] [] Salvation [] Other: Impact on Illness or Injury [] Angry [] Fearful [] Anxious [] Often cries [] Exhaustion [] Unable to work [] Unable to attend temple [] Unable to walk/stand [] Unable to read [] Unable to drive [] Unable to eat/drink [] Unable to sleep [] Unable to be with family [] Other: on ventilator Summary Patient unable to communicate. When asked if prayer ok, patient indicated it was ok. Time spent with patient 10 min
[2019-06-04] MEDS: nicotine 21 mg Patch 1 PATCH TRANSDERMA (10:17)
[2019-06-04] MEDS: levothyroxine 125 mcg Tablet PO (10:19)
[2019-06-04] MEDS: vancomycin 1,000 MG in sodium chloride 0.9% 250 ML 250 MG IV (10:19)
--- NOTE | 2019-06-04 10:36 | PC.RESP ---
PT PLACED ON CPAP BY DR LOPEZ WHEN THERAPIST GONE TO CT WITH ANOTHER PT.
--- NOTE | 2019-06-04 13:25 | PC.RESP ---
PT EXTUBATED TO BIPAP OF 10/5 AND 30%FIO2 PER DR. LOPEZ. SAT 94% HR 83 RR 41
--- NOTE | 2019-06-04 15:54 | P.PN_ITS ---
Subjective Subjective: Interval history: The patient was seen and examined this morning and multiple times throughout the course of the day. The patient was awake alert and comfortable on the controlled mechanical ventilation. However when the patient was put on PSV of 5/5 the patient tends to get tachypneic. I had checked the patient negative inspiratory force which was -42 cm of water and her vital capacity on the ventilator was 900 cc. At that point I decided to extubate the patient to BiPAP. Following extubation later today, the patient has been doing fairly well. Medications: Reviewed: Yes Vitals/I&O/Wt Last Vital Signs Temp 100.4 F H 06/03/19 22:00 Pulse 73 06/04/19 15:11 Resp 32 H 06/04/19 15:09 BP 123/69 06/04/19 14:13 Pulse Ox 94 06/04/19 15:11 06/04/19 06/04/19 06/04/19 06:59 14:59 22:59 Intake Total 110 / 798 927.5 / 927.5 Output Total 450 / 900 200 / 200 Balance -340 / -102 727.5 / 727.5 Weight last 48 hrs Weight 183 lb 14.4 oz Weight 183 lb 14.4 oz Physical Exam Narrative: EXAM NARRATIVE: General: Patient is easily arousable, intubated Neck: No JVD, no cervical or supraclavicular lymphadenopathy. Respiratory: Auscultation: Reduced breath sound bilaterally, occasional crackles of the right lower lung zone laterally, no wheezing or rhonchi Cardiovascular: Regular rate and rhythm, S1-S2 present, distant heart sound, no murmur, no right ventricular heave, minimal peripheral edema. Abdomen: Soft, nondistended, positive bowel sound. Skin: No rash Neuro: Patient is arousable and follows simple command Urinary Catheter Management^: [place]: Cath Placed During This Visit: no Data : 06/04/19 03:00 06/04/19 03:00 Micro: Microbiology 06/02/19 09:59 Gram Stain - Final Sputum - Endotracheal Tube Aspirate Sputum Culture - Final 06/01/19 23:19 Sputum Culture - Final Sputum - Endotracheal Tube Aspirate 06/02/19 19:53 Blood Culture - Preliminary Blood NEGATIVE TO DATE 06/02/19 19:56 Blood Culture - Preliminary Blood NEGATIVE TO DATE Other data: I have reviewed the patient's laboratory data. The repeat blood cultures are negative. A&P Assessment and plan (1) Septic shock: The septic shock is resolved. The patient is off of Levophed. Her map is greater than 65 mmHg. We will continue with Zosyn for 2 weeks following the first negative blood culture. Status: Acute Code(s): A41.9 - Sepsis, unspecified organism; R65.21 - Severe sepsis with septic shock (2) Bacteremia due to Escherichia coli: The patient will require 2 weeks of IV antibiotic therapy following the first negative blood culture. Status: Acute Code(s): R78.81 - Bacteremia (3) Respiratory failure with hypoxia: I was able to extubate the patient today. Currently she is on BiPAP. I will try to switch her to high flow nasal cannula when possible. I am going to restart her diuresis today. Status: Acute Code(s): J96.91 - Respiratory failure, unspecified with hypoxia (4) Acute kidney injury: Acute kidney injury points possibly secondary to sepsis as well as fluid overload. Currently the creatinine is stable. We will hold nephrotoxic drug and start gentle diuresis. 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
[2019-06-04] MEDS: FUROsemide 10 mg/mL SDV 2mL 20 MG IVP (16:33)
--- NOTE | 2019-06-04 17:27 | PC.NURSE ---
Patient had large liquid BM. Patient cleaned. Central line ports washed and central maintennce with dressing change complete.
[2019-06-04] MEDS: OLANZapine 5 mg TABLET 2.5 MG PO (21:35)
[2019-06-04] MEDS: PARoxetine 20 mg Tablet 10 MG PO (21:35)
[2019-06-05] VITALS (28 sets, daily range): BP systolic 112–170; BP diastolic 69–104; PULSE 73–101; RESP 17–33; TEMP 36.6–36.9; O2SAT 88–97
[2019-06-05] MEDS: piperacillin-tazobactam 3.375 GM in sodium chloride 0.9% (plus) 50 ML IV ×2 (00:17→08:33)
[2019-06-05] MEDS: ipratropium-albuterol 3 mL Neb INHALATION ×4 (02:18→20:00)
[2019-06-05] MEDS: FUROsemide 10 mg/mL SDV 2mL 20 MG IVP (04:06)
[2019-06-05 04:43] LABS: Basophils # 0.1 10^3/uL (0.0-0.1); Basophils % 0.5 %; Eosinophils # 0.3 10^3/uL (0.0-0.8); Eosinophils % 2.8 %; Hematocrit 36.5 % (37.0-47.0); Hemoglobin 11.1 g/dL (11.5-15.3); Lymphocytes # 1.5 10^3/uL (0.8-4.8); Lymphocytes % 15.8 %; Mean Corpuscular HGB Conc 30.4 g/dL (30.0-36.0); Mean Corpuscular Hemoglobin 28.5 pg (28.0-34.0); Mean Corpuscular Volume 93.6 fL (81-99); Monocytes # 0.7 10^3/uL (0.2-0.9); Monocytes % 7.7 %; Neutrophils # 6.1 10^3/uL (1.8-7.7); Neutrophils % 65.1 %; Nucleated Red Blood Cells % 0 %; Platelet Count 298 10^3/cmm (130-400); Positive C 1; Positive M 1; Red Cell Distribution Width 16.6 % (12.1-15.1); White Blood Count 9.4 10^3/uL (4.0-10.0)
[2019-06-05 05:01] LABS: Alanine Aminotransferase 15 U/L (0-33); Albumin Level 2.8 g/dL (3.5-5.2); Alkaline Phosphatase 69 IU/L (35-105); Anion Gap 15.4 (5-19); Aspartate Amino Transferase 34 U/L (0-32); Blood Urea Nitrogen 44 mg/dL (8-23); Calcium 9.6 mg/dL (8.5-10.5); Carbon Dioxide 36 mmol/L (22-29); Chloride 94 mmol/L (98-107); Globulin 4.1 g/dL (1.3-4.6); Glucose 108 mg/dL (74-106); Potassium 3.4 mmol/L (3.5-5.1); Sodium 142 mmol/L (136-145); Total Bilirubin 0.4 mg/dL (0.15-1.2); Total Protein 6.9 g/dL (6.6-8.7)
[2019-06-05 05:36] LABS: Slide Review Slide Review Perform
[2019-06-05] MEDS: budesonide 0.5 mg/2 mL Neb 0.25 MG INHALATION ×2 (08:06→20:00)
[2019-06-05] MEDS: enoxaparin 40 mg/0.4 mL Syringe SUBCUT (08:34)
[2019-06-05] MEDS: nicotine 21 mg Patch 1 PATCH TRANSDERMA (09:49)
[2019-06-05] MEDS: levothyroxine 125 mcg Tablet PO (09:49)
--- NOTE | 2019-06-05 11:08 | DCPLANNER ---
Pg 2 of IM updated and reviewed with pt. She nods that she understands and accepts the copy.
--- NOTE | 2019-06-05 11:27 | PC.NURSE ---
Call placed to Dr. Arevalo regarding fluids. Physician stated to consult Dr. Mccollum regarding the needs for fluid to prevent patient from becoming fluid overloaded at this time. Fluids on hold at this time until Physician gives to order.
[2019-06-05 14:40] LABS: ABG PH Result 7.49 (7.35-7.45); Alveolar-Arterial Oxygen Gradi 151.5 mmHg (5-10); Arterial Blood Gas Hematocrit 36.2 % (37-47); Blood Gas Allen Test Pos; Blood Gas Sample Site Brachial, right; Blood Gas Sample Type Arterial; Carboxyhemoglobin 0.8 %THgb (0.4-20.1); HCO3 ABG 39.4 mmol/L (22-26); HGB O2 Sat 91.4 % (95-100); Ionized Calcium Level - ABG 1.2 mmol/L (1.1-1.4); Methemoglobin 0.4 % (0.4-1.5); Oxygen Saturation ABG 92.5; PO2 ABG 65.2 mmHg (80.0-100.0); Potassium Level - ABG 3.2 mmol/L (3.5-5.0); Total Hemoglobin 11.8 g/dL (12-16)
--- NOTE | 2019-06-05 15:06 | P.PN_ITS ---
Subjective Subjective: Interval history: The patient seems to be doing better. Resting in bed comfortably without any shortness of breath. Currently she is on high flow nasal cannula and maintaining her saturation in the 90s. Medications: Reviewed: Yes Vitals/I&O/Wt Last Vital Signs Temp 98.0 F 06/05/19 12:00 Pulse 85 06/05/19 14:00 Resp 26 H 06/05/19 14:00 BP 162/74 06/05/19 14:00 Pulse Ox 90 06/05/19 14:00 06/05/19 06/05/19 06/05/19 06:59 14:59 22:59 Intake Total 50 / 1197.5 Output Total 1600 / 2280 Balance -1550 / -1082.5 Weight last 48 hrs Weight 172 lb Weight 183 lb 14.4 oz Physical Exam Narrative: EXAM NARRATIVE: General: Patient is awake alert and in no acute distress Neck: No JVD, no cervical or supraclavicular lymphadenopathy. Respiratory: Auscultation: Reduced breath sound bilaterally, occasional crackles of the right lower lung zone laterally, no wheezing or rhonchi Cardiovascular: Regular rate and rhythm, S1-S2 present, distant heart sound, no murmur, no right ventricular heave, minimal peripheral edema. Abdomen: Soft, nontender, nondistended, positive bowel sound. Skin: No rash Neuro: Patient is awake and alert, no gross motor deficit. Urinary Catheter Management^: [place]: Cath Placed During This Visit: no Data : 06/05/19 04:22 06/05/19 04:22 Micro: Microbiology 06/04/19 22:00 Occult Blood (FIT) - Final Stool - Stool Aspirate 06/02/19 09:59 Gram Stain - Final Sputum - Endotracheal Tube Aspirate Sputum Culture - Final 06/01/19 23:19 Sputum Culture - Final Sputum - Endotracheal Tube Aspirate ABG Interpretation 4: The arterial blood gas obtained today is consistent with metabolic alkalosis with respiratory compensation. This is consistent with contraction alkalosis from diuresis. I have reviewed the patient laboratory data. She has hypokalemia. A&P Assessment and plan (1) Septic shock: Resolved Status: Acute Code(s): A41.9 - Sepsis, unspecified organism; R65.21 - Severe sepsis with septic shock (2) Bacteremia due to Escherichia coli: I have switched the patient to ceftriaxone. She will need therapy p.o. June 16. Status: Acute Code(s): R78.81 - Bacteremia (3) Respiratory failure with hypoxia: The patient is doing well. Continues on 40% FiO2 on high flow nasal cannula. We will titrate the FiO2 down and try nasal cannula. Status: Acute Code(s): J96.91 - Respiratory failure, unspecified with hypoxia (4) Acute kidney injury: Improving. The patient most likely had ATN in the setting of sepsis. We will continue to monitor. Status: Acute Code(s): N17.9 - Acute kidney failure, unspecified (5) Metabolic alkalosis: The metabolic alkalosis is secondary to contraction alkalosis in the setting of diuresis. I will hold the diuresis for now. The alkalosis is most likely chloride responsive. I will give her 500 cc of sodium chloride over 10 hours. 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
[2019-06-05] MEDS: cefTRIAXone 1,000 MG in sodium chloride 0.9% (plus) 50 ML 100 MG IV (15:43)
[2019-06-05] MEDS: sodium chloride 0.9% 500 ML 50 ML IV (15:43)
[2019-06-05] MEDS: OLANZapine 5 mg TABLET 2.5 MG PO (20:49)
[2019-06-05] MEDS: divalproex ER 500 mg Tablet (24H) 1000 MG PO (20:50)
[2019-06-05] MEDS: PARoxetine 20 mg Tablet 10 MG PO (20:50)
[2019-06-06] VITALS (30 sets, daily range): BP systolic 123–178; BP diastolic 62–97; PULSE 72–92; RESP 17–34; TEMP 36.2–36.8; O2SAT 92–100
[2019-06-06] MEDS: ipratropium-albuterol 3 mL Neb INHALATION ×4 (02:18→21:20)
[2019-06-06] MEDS: cefTRIAXone 1,000 MG in sodium chloride 0.9% (plus) 50 ML 100 MG IV ×2 (04:10→16:37)
[2019-06-06] MEDS: budesonide 0.5 mg/2 mL Neb 0.25 MG INHALATION ×2 (08:01→21:20)
[2019-06-06 08:42] LABS: Vancomycin Trough < 4.0 ug/mL (10-15)
--- NOTE | 2019-06-06 08:46 | P.PN_ITS ---
Subjective Subjective: Interval history: Seems to be doing better. She states she feels less short of breath. No significant sputum. No fevers or chills. She does have a femoral central line that has been in for a while. Vitals/I&O/Wt Last Vital Signs Temp 97.1 F L 06/06/19 02:00 Pulse 79 06/06/19 08:04 Resp 30 H 06/06/19 08:01 BP 123/70 06/06/19 06:00 Pulse Ox 96 06/06/19 08:01 06/05/19 06/06/19 06/06/19 22:59 06:59 14:59 Intake Total 190 / 740 550 / 740 Output Total 450 / 800 350 / 800 Balance -260 / -60 200 / -60 Weight last 48 hrs Weight 174 lb 3.2 oz Weight 172 lb Physical Exam Narrative: EXAM NARRATIVE: General: No acute distress, Alert. Well nourished. Heart: Regular rate and rhythm. No murmurs, rubs or gallops. Normal capillary refill. Lungs: Clear to auscultation. No wheezes, rhonchi or rales. Abdomen: Positive bowel sounds. Non-tender, non-distended. No hepatosplenomegaly. No gaurding. Extremities: No clubbing, cyanosis, or edema. Negative Rayna's Urinary Catheter Management^: [place]: Cath Placed During This Visit: no Data : 06/05/19 04:22 06/05/19 04:22 Micro: Microbiology 06/04/19 22:00 Occult Blood (FIT) - Final Stool - Stool Aspirate A&P Assessment and plan (1) COPD (chronic obstructive pulmonary disease): She still on high flow oxygen but I feel like we should be able to wean her down today. We will attempt to do this. Status: Chronic Code(s): J44.9 - Chronic obstructive pulmonary disease, unspecified (2) Septic shock: This seems to be improved. Urine cultures were positive with sen sitivities. On Rocephin currently. We will probably continue IV antibiotics for another day and then switch to oral. At that point try to remove the femoral central line. Status: Acute Code(s): A41.9 - Sepsis, unspecified organism; R65.21 - Severe sepsis with septic shock (3) CHF (congestive heart failure): Stable Status: Acute Qualifiers: Heart failure chronicity: acute Heart failure type: unspecified Qualified Code(s): I50.9 - Heart failure, unspecified Code(s): I50.9 - Heart failure, unspecified Attestations Medical Necessity Statement*: 73-year-old female with septic shock and respiratory failure requiring continued inpatient ICU treatment monitoring. 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 F[facility] Diagnoses COPD (chronic obstructive pulmonary disease) J44.9 Septic shock A41.9; R65.21 CHF (congestive heart failure) I50.9 Heart failure chronicity: acute Heart failure type: unspecified
[2019-06-06] MEDS: enoxaparin 40 mg/0.4 mL Syringe SUBCUT (10:15)
[2019-06-06] MEDS: nicotine 21 mg Patch 1 PATCH TRANSDERMA (10:15)
[2019-06-06] MEDS: levothyroxine 125 mcg Tablet PO (10:15)
[2019-06-06] MEDS: divalproex ER 500 mg Tablet (24H) 1000 MG PO (21:34)
[2019-06-06] MEDS: PARoxetine 20 mg Tablet 10 MG PO (21:35)
[2019-06-06] MEDS: OLANZapine 5 mg TABLET 2.5 MG PO (21:35)
[2019-06-07] VITALS (23 sets, daily range): BP systolic 136–162; BP diastolic 66–104; PULSE 78–109; RESP 16–31; TEMP 36.4–37.1; O2SAT 81–98
[2019-06-07] MEDS: ipratropium-albuterol 3 mL Neb INHALATION ×4 (02:03→21:17)
[2019-06-07] MEDS: cefTRIAXone 1,000 MG in sodium chloride 0.9% (plus) 50 ML 100 MG IV (03:37)
[2019-06-07] MEDS: budesonide 0.5 mg/2 mL Neb 0.25 MG INHALATION ×2 (08:02→21:15)
[2019-06-07] MEDS: nicotine 21 mg Patch 1 PATCH TRANSDERMA (08:52)
[2019-06-07] MEDS: enoxaparin 40 mg/0.4 mL Syringe SUBCUT (08:52)
[2019-06-07] MEDS: levothyroxine 125 mcg Tablet PO (08:53)
--- NOTE | 2019-06-07 08:53 | PM.PN ---
Subjective Subjective: Interval history: Seems to be doing better. She has been successful off of the BiPAP. Just on nasal cannula. Still very weak. No chest pain. No fevers or chills. Medications: Reviewed: Yes Vitals/I&O/Wt Last Vital Signs Temp 97.6 F 06/07/19 04:00 Pulse 88 06/07/19 08:06 Resp 20 H 06/07/19 08:03 BP 151/81 06/07/19 06:00 Pulse Ox 93 06/07/19 08:03 06/06/19 06/07/19 06/07/19 22:59 06:59 14:59 Intake Total 470 / 1430 240 / 1430 120 / 120 Output Total 350 / 700 350 / 700 Balance 120 / 730 -110 / 730 120 / 120 Weight last 48 hrs Weight 179 lb 6.4 oz Weight 174 lb 3.2 oz Physical Exam Narrative: EXAM NARRATIVE: General: No acute distress, Alert. Well nourished. Heart: Regular rate and rhythm. No murmurs, rubs or gallops. Normal capillary refill. Lungs: Clear to auscultation. No wheezes, rhonchi or rales. Abdomen: Positive bowel sounds. Non-tender, non-distended. No hepatosplenomegaly. No gaurding. Extremities: No clubbing, cyanosis, or edema. Negative Rayna's Urinary Catheter Management^: [place]: Cath Placed During This Visit: no Data : 06/05/19 04:22 06/05/19 04:22 Micro: Microbiology 05/29/19 13:46 Blood Culture - Final Blood Escherichia coli 05/29/19 13:42 Blood Culture - Final Blood Escherichia coli A&P Assessment and plan (1) COPD (chronic obstructive pulmonary disease): Doing well off BiPAP. We will transfer her to the floor today. Continue to wean her oxygen down. Possible discharge tomorrow.. Status: Chronic Code(s): J44.9 - Chronic obstructive pulmonary disease, unspecified (2) Septic shock: This is resolved. We will go ahead and remove the femoral central line. Switch her over to oral antibiotics per blood culture results. Anticipate discharge probably tomorrow.. Status: Acute Code(s): A41.9 - Sepsis, unspecified organism; R65.21 - Severe sepsis with septic shock (3) CHF (congestive heart failure): Stable Status: Acute Qualifiers: Heart failure chronicity: acute Heart failure type: unspecified Qualified Code(s): I50.9 - Heart failure, unspecified Code(s): I50.9 - Heart failure, unspecified Attestations Medical Necessity Statement*: This is a 73-year-old female with COPD and septic shock from UTI. She is continued to improve but requires another overnight stay in the hospital for continued treatments in the inpatient setting. 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
--- NOTE | 2019-06-07 09:15 | PC.SOCIAL ---
IMM Update Pg 2 of IMM given and explained to patient who voiced understanding. Copy Provided to patient and .
--- NOTE | 2019-06-07 09:45 | PC.NURSE ---
10 ml of water removed from sorto catheter. Patient tolerated procedure well. Will monitor urine output
[2019-06-07] MEDS: cefUROXime 250 mg Tablet 500 MG PO ×2 (09:57→17:00)
--- NOTE | 2019-06-07 10:40 | PC.NURSE ---
Patient belongings gathered. Patient assisted into wheelchair, and oxygen placed. Patient transported to room 279-2. Transferred to bed via one person assist. Oxygen placed. Vitals at time of transfer- 96% on 4 liters and a heart rate of 108. Patient stable at time of departure.
--- NOTE | 2019-06-07 10:44 | PC.NURSE ---
Pt arrived to the floor at 1030 via w/c. One assist from w/c to bed. Spouse at bedside. Assessment completed. Orientated to room and surroundings. Call light in reach.
--- NOTE | 2019-06-07 19:21 | PC.NURSE ---
Central line to right femoral veing removed with catheter intact. Pt tolerated well. Pressure held with 2x2 and then secured with tape.
[2019-06-07] MEDS: divalproex ER 500 mg Tablet (24H) 1000 MG PO (21:46)
[2019-06-07] MEDS: OLANZapine 5 mg TABLET 2.5 MG PO (21:47)
[2019-06-07] MEDS: PARoxetine 20 mg Tablet 10 MG PO (21:48)
[2019-06-08] VITALS (12 sets, daily range): BP systolic 116–142; BP diastolic 72–93; PULSE 74–125; RESP 16–26; TEMP 36.4–36.8; O2SAT 90–98
[2019-06-08] MEDS: ipratropium-albuterol 3 mL Neb INHALATION ×3 (02:33→14:39)
[2019-06-08] MEDS: budesonide 0.5 mg/2 mL Neb 0.25 MG INHALATION (08:49)
[2019-06-08] MEDS: cefUROXime 250 mg Tablet 500 MG PO (09:17)
[2019-06-08] MEDS: levothyroxine 125 mcg Tablet PO (09:17)
[2019-06-08] MEDS: enoxaparin 40 mg/0.4 mL Syringe SUBCUT (09:17)
[2019-06-08] MEDS: nicotine 21 mg Patch 1 PATCH TRANSDERMA (09:18)
--- NOTE | 2019-06-08 16:13 | P.DS_ITS ---
Discharge Providers Date of Admission: 05/29/19 17:44 Date of Discharge: 06/08/19 Attending Provider at Admission: Ash Arevalo MD Attending Provider at Discharge: Ash Arevalo MD Diagnoses at Discharge Discharge Diagnosis (1) COPD (chronic obstructive pulmonary disease): Status: Chronic (2) Septic shock: Status: Acute (3) CHF (congestive heart failure): Status: Acute Qualifiers: Heart failure chronicity: acute Heart failure type: unspecified Qualified Code(s): I50.9 - Heart failure, unspecified (4) Acute UTI: Status: Acute (5) Acute kidney injury: Status: Acute (6) Respiratory failure with hypoxia: Status: Acute Reason for Visit Reason for Visit: Reason For Visit: ALTERED MENTAL STATUS Hospital Course Hospital Course: The patient was admitted with septic shock secondary to a UTI that led to sepsis with bacteremia. The patient was started on IV antibiotics and pressors and placed in the ICU. The patient initially started improving, however her respiratory status worsened and she eventually developed respiratory failure with hypoxia. The patient was on BiPAP that was not resolving the issue, so she was intubated. Dr. Mccollum saw the patient and the patient was extubated over the next few days. The patient has been continued on antibiotics and her sensitivities have returned showing sensitivity to cefuroxime. She is currently on this we will need to remain on it for a total of 14 days after her negative blood culture which would be until June 16. Currently the patient is doing much better and ambulating, voiding, has some loose stools and tolerating food by mouth. The loose stools are relatively normal for her. Currently there are no signs for C. difficile other than one loose stool today. If persistent, we may consider testing as an outpatient. All questions were answered and the patient is in agreement with discharge home at this time. She will follow-up with me next week in clinic. If her breathing is worsening, we will consider a referral for pulmonology at that time. Physical Exam Narrative: EXAM NARRATIVE: General: Alert and oriented Mouth: No lesions noted Cardiac: Regular rate and rhythm without murmurs Lungs: Clear to auscultation bilaterally with decreased air entry in general Abdomen: Soft, nontender Extremities: Trace edema in the bilateral lower extremities Urinary Catheter Management^: Segoiva: Cath Placed During This Visit: no Discharge Data Data Completed and Pending: Completed Studies During Hospitalization Category Date Time Status CT chest wo con 7 1250 Routine Cat Scan 05/31/19 09:[address] head wo con* 7 0450 Urgent Cat Scan 05/29/19 13:28 Completed XR chest 1V deon ble 71474 Routine Exams 06/01/19 22:22 Completed XR chest 1V deon ble 42168 Routine Exams 06/02/19 06:00 Completed XR chest 1V deon ble 33799 Routine Exams 06/03/19 06:44 Completed XR chest 1V deon ble 09960 Urgent Exams 05/29/19 13:28 Completed XR pelvis 1-2V* 7 2170 Urgent Exams 06/02/19 04:11 Completed [place] pul perfusion 43226 Routine Nuc Med 06/01/19 07:00 Completed CV echo complete* 89520 Routine Ultrasound 05/30/19 18:05 Completed US renal BI* 7677 0 Routine Ultrasound 05/30/19 18:29 Completed Vitals: Last Vital Signs Temp 97.5 F L 06/08/19 16:00 Pulse 116 H 06/08/19 16:00 Resp 18 06/08/19 16:00 BP 141/93 06/08/19 16:00 Pulse Ox 94 06/08/19 16:00 Discharge Plan Discharge Patient Disposition: Home, Self-Care Condition: Stable Prescriptions: New cefuroxime axetil 250 mg Tablet 500 mg PO BID Qty: 16 RF: 0 Continued fluticasone propion-salmeterol [Advair Diskus] 250-50 mcg/dose blister with device 2 inh INHALATION RF: 0 olanzapine 5 mg Tablet 5 mg PO BEDTIME RF: 0 atenolol 25 mg tablet 25 mg PO DAILY RF: 0 paroxetine HCl 20 mg tablet 20 mg PO BEDTIME RF: 0 levothyroxine 125 mcg Tablet 125 mcg PO DAILY RF: 0 divalproex 500 mg Tablet Extended Release 24 Hr 1,000 mg PO BEDTIME RF: 0 albuterol sulfate [ProAir HFA] 90 mcg/actuation HFA aerosol inhaler 2 puff INHALATION PRN (Reason: Shortness Of Breath) RF: 0 loperamide 2 mg 2 mg PO PRN MDD 8 mg PRN (Reason: Diarrhea) RF: 0 Discharge Orders: Discharge Order (Routine); Ordered 06/08/19 Ordered By: Ash Arevalo Referrals: Ash Arevalo MD [Family Provider] - 1 week Discharge Diet: Advance as tolerated Discharge Activity: Increase activity as tolerated Activity Restrictions/Additional Instructions: Please take your oral antibiotics for the next 8 days. If you are worsening in any way, please call Dr. Arevalo's office for further instruction, or go to the ER if significantly worsening. Discharge Attestations Time Spent in Discharge Care*: greater than 30 min Specific Discharge Activities: Specific discharge activities: educating patient and documenting/other paperwork Quality Metrics Clinical Quality Measures During this hospital stay, did patient experience: None Coding Level of Care Code Acute Wafer Line Worker for g Fwd Diagnoses COPD (chronic obstructive pulmonary disease) J44.9 Septic shock A41.9; R65.21 CHF (congestive heart failure) I50.9 Heart failure chronicity: acute Heart failure type: unspecified Acute UTI N39.0 Acute kidney injury N17.9 Respiratory failure with hypoxia J96.91
--- NOTE | 2019-06-08 17:51 | PC.NURSE ---
DISCHARGE Patient refusing home oxygen evaluation, stating she cannot handle another delay. Explained to patient that if she needed oxygen and went without it she would end up coming back to the hospital. Patient continued to adamantly refuse home oxygen evaluation oxygen saturation at 94% on room air at rest. 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
== END 2019-06-08 17:54 | disposition home or self-care (01) | DRG 871 ==
LOC: ER 15:52 → ICU 17:46 → MEDSURG 06-07 10:15
PROVIDERS: Family Medicine; Internal Medicine; Internal Medicine Critical Care Medicine; Admitting Provider Family Medicine; Emergency Provider Emergency Medicine; Family Provider Family Medicine; Visit Provider Family Medicine
DX: A41.9 Sepsis, unspecified organism (principal); J96.91 Respiratory failure, unspecified with hypoxia; I50.31 Acute diastolic (congestive) heart failure; R65.21 Severe sepsis with septic shock; J69.0 Pneumonitis due to inhalation of food and vomit; N39.0 Urinary tract infection, site not specified; J44.1 Chronic obstructive pulmonary disease with (acute) exacerbation; N17.9 Acute kidney failure, unspecified; F20.9 Schizophrenia, unspecified; I11.0 Hypertensive heart disease with heart failure; E03.9 Hypothyroidism, unspecified; F32.9 Major depressive disorder, single episode, unspecified; F17.210 Nicotine dependence, cigarettes, uncomplicated
CPT/HCPCS: 12345; 36415; 36416; 36556; 36592; 36600; 51702; 70450; 71045; 71250; 72170; 76770; 78580; 80051; 80053; 80164; 80202; 80307; 81003; 82009; 82140; 82274; 82570; 82803; 82810; 82962; 83605; 83735; 83880; 83986; 84100; 84300; 84484; 85007; 85025; 85610; 85651; 85730; 86141; 86403; 87040; 87070; 87077; 87086; 87186; 87205; 87449; 87804; 92526; 92610; 93005; 93306; 94002; 94003; 94640; 94660; 94799; 96105; 96365; 96366; 96372; 96374; 96375; 97110; 97161; 97167; 97530; 97535; 99283; A9540; C1751; J0330; J0696; J1644; J1650; J1940; J1956; J2543; J2704; J3010; J3370; J3490; J7030; J7050; J7626

== ENCOUNTER → 2019-07-10 12:15 | Outpatient (BNVA) | payer MEDICARE, SELFPAY | PROVIDERS: Family Provider Family Medicine; Visit Provider Psychiatry & Neurology Psychiatry | DX: F25.0 Schizoaffective disorder, bipolar type (principal) | CPT/HCPCS: 99213 ==

== ENCOUNTER → 2020-02-09 07:38 | Outpatient (BNVA) | payer MEDICARE, SELFPAY | PROVIDERS: Family Provider Family Medicine; Visit Provider Psychiatry & Neurology Psychiatry | DX: F25.0 Schizoaffective disorder, bipolar type (principal); G24.01 Drug induced subacute dyskinesia | CPT/HCPCS: 99213 ==

== ENCOUNTER → 2020-06-08 08:59 | Outpatient (BNVA) | payer MEDICARE, SELFPAY | PROVIDERS: Family Provider Family Medicine; PCP Family Medicine; Visit Provider Psychiatry & Neurology Psychiatry | DX: F25.0 Schizoaffective disorder, bipolar type (principal); G24.01 Drug induced subacute dyskinesia; Z79.899 Other long term (current) drug therapy; I10 Essential (primary) hypertension; F17.210 Nicotine dependence, cigarettes, uncomplicated | CPT/HCPCS: 99214 ==

== ENCOUNTER → 2020-07-12 09:34 | Outpatient (BNVA) | payer MEDICARE, SELFPAY | PROVIDERS: Family Provider Family Medicine; PCP Family Medicine; Visit Provider Psychiatry & Neurology Psychiatry | DX: Z79.899 Other long term (current) drug therapy (principal); I10 Essential (primary) hypertension | CPT/HCPCS: 80061; 80076; 80164; 85025 ==

== ENCOUNTER → 2020-09-27 07:59 | Outpatient (BNVA) | payer MEDICARE, SELFPAY | PROVIDERS: Family Provider Family Medicine; PCP Family Medicine; Visit Provider Psychiatry & Neurology Psychiatry | DX: F25.0 Schizoaffective disorder, bipolar type (principal); G24.01 Drug induced subacute dyskinesia; Z79.899 Other long term (current) drug therapy; E87.1 Hypo-osmolality and hyponatremia | CPT/HCPCS: 99214 ==

== ENCOUNTER → 2020-10-06 10:01 | Outpatient (BNVA) | payer MEDICARE, SELFPAY | PROVIDERS: Family Provider Family Medicine; PCP Family Medicine; Visit Provider Psychiatry & Neurology Psychiatry | DX: Z79.899 Other long term (current) drug therapy (principal) | CPT/HCPCS: 84295 ==

== ENCOUNTER → 2020-12-21 12:26 | Outpatient (BNVA) | payer MEDICARE, SELFPAY | PROVIDERS: Family Provider Family Medicine; PCP Family Medicine; Visit Provider Psychiatry & Neurology Psychiatry | DX: F25.0 Schizoaffective disorder, bipolar type (principal); G24.01 Drug induced subacute dyskinesia | CPT/HCPCS: 99213 ==

== ENCOUNTER → 2021-03-17 07:06 | Outpatient (BNVA) | payer MEDICARE, SELFPAY | PROVIDERS: Family Provider Family Medicine; PCP Family Medicine; Visit Provider Psychiatry & Neurology Psychiatry | DX: F25.0 Schizoaffective disorder, bipolar type (principal); G24.01 Drug induced subacute dyskinesia | CPT/HCPCS: 99214 ==

== ENCOUNTER 2021-05-04 19:20 | Emergency (ER) | payer MEDICARE, SELFPAY ==
--- NOTE | 2021-05-04 19:25 | W.ED.GENADLT ---
HPI - General Adult General: Chief complaint: Cardiac Arrest/CPR Stated complaint: UNRESPONSIVE Time Seen by Provider: 05/04/21 19:25 Source: EMS Mode of arrival: EMS Limitations: altered mental status History of Present Illness: HPI narrative: 75-year-old female who has been at found down without a pulse and was not breathing so he called EMS when EMS arrived patient was in cardiac arrest with no pulse patient has underwent CPR and multiple medications over the last 40 minutes. She has had 2 episodes of ROSC that was very short-lived. Patient currently receiving CPR in route patient was intubated as well. EMS states she is never been responsive. She has been given multiple doses of epinephrine also dose of sodium bicarb. Review of Systems General: Reports: ROS unobtainable due to mental status PFSH ED PFSH: Medical History (Updated 05/04/21 @ 19:26 by Kevin Baez MD) COPD (chronic obstructive pulmonary disease) Dyskinesia, tardive History of nonmelanoma skin cancer HTN (hypertension) Hyperammonemia Hypothyroidism Metabolic alkalosis Psychiatric care Respiratory failure with hypoxia Schizoaffective disorder, bipolar type Social History Smoking and tobacco status: current every day smoker cigarettes Packs smoked per day: 1 Alcohol intake: current Alcohol intake frequency: holidays/special occasions only Household members: spouse Marital status: Physical Exam Const: COMMON NORMALS: negative for patient oriented x3 and negative for alert HENMT: HEAD & SCALP: normal to inspection Eye: OTHER: Pupils dilated unresponsive Neck/C-Spine: COMMON NORMALS: full ROM Chest: COMMONS NORMALS: normal inspection of the chest Resp: OTHER: Patient is intubated at this time Cardio: OTHER: pulseless GI: COMMON NORMALS: Soft to palpation INSPECTION: Yes normal to inspection PALPATION: Yes Soft to palpation Extremity: COMMON NORMALS: normal to inspection Neuro: COMMON NORMALS: negative for patient oriented x3 SENSORIUM/ORIENTATION: No alert Psych: COMMON NORMALS: negative for mental status grossly normal Skin: COMMON NORMALS: no rashes or lesions noted GENERAL SKIN EXAM: no rashes or lesions noted MDM - General Adult MDM Narrative: Medical decision making narrative: Patient presents here with cardiac arrest. Patient given epinephrine here 2 rounds of CPR I did a bedside echo patient had no cardiac activity had been worked for over 40 minutes time of was called at 1924. Discharge Plan Discharge Patient Disposition: Clinical Impression: Cardiac arrest Condition: Stable Prescriptions: No Action olanzapine 5 mg tablet 5 mg PO BEDTIME Qty: 30 RF: 11 paroxetine HCl 20 mg tablet 20 mg PO BEDTIME Qty: 30 RF: 11 divalproex 500 mg tablet extended release 24 hr 1,000 mg PO BEDTIME Qty: 60 RF: 11 fluticasone propion-salmeterol [Advair Diskus] 250-50 mcg/dose blister with device 2 inh INHALATION RF: 0 atenolol 25 mg tablet 25 mg PO DAILY RF: 0 levothyroxine 125 mcg Tablet 125 mcg PO DAILY RF: 0 albuterol sulfate [ProAir HFA] 90 mcg/actuation HFA aerosol inhaler 2 puff INHALATION PRN (Reason: Shortness Of Breath) RF: 0 loperamide 2 mg 2 mg PO PRN MDD 8 mg PRN (Reason: Diarrhea) RF: 0 cefuroxime axetil 250 mg Tablet 500 mg PO BID Qty: 16 RF: 0 Referrals: Ash Arevalo MD [Primary Care Provider] - Coding Level of Care Code ED Corporate Learning Consultant for Hanh Medeiros
[2021-05-04 19:27] VITALS: PULSE 0; BMI 25.8
--- NOTE | 2021-05-04 19:31 | PC.NURSE ---
1916 - patient arrived via EMS with CPR in progress. [facility] staff assumed care and resumed CPR. 1918 pulse check; pulseless; 1 dose IVP epi given. 1920 - pulse check; PEA 1922 - pulse check; asystole. 1923 - DR. Baez checked cardiac response with US; no activity. time of 1923.
--- NOTE | 2021-05-04 21:52 | PC.NURSE ---
19:50 [facility]TS notified of patient , notified and home has not been selected so patient was placed in the morgue at 21:50.
== END 2021-05-04 21:51 | disposition expired ==
PROVIDERS: Emergency Provider Emergency Medicine; PCP Family Medicine
DX: I46.9 Cardiac arrest, cause unspecified (principal)
CPT/HCPCS: 99283